=== PATIENT | male | born 1980 | race African-American/Black ===

== ENCOUNTER 2018-11-22 16:33 | Emergency (ER) | payer OTHER ==
[~2018-11-22] VITALS: Ht 185.4 cm; Wt 113.4 kg
--- OUTSIDE RECORDS SUMMARY | ~2018-11-22 | XMS | Encounter Summary ---
Demographics + + + | Address | [address] [place] [address] | | | [place] [address] | + + + | Home Phone | | + + + | Preferred Language | Unknown | + + + | Marital Status | Unknown | + + + | Yazidi Affiliation | Unknown | + + + | Race | Unknown | + + + | Ethnic Group | Unknown | + + + Author + + + | Author | [employer] | + + + | Organization | [facility] | + + + | Address | Unknown | + + + | Phone | Unavailable | + + + Support + + +---------+ + | Name | Relationship | Address | Phone | + + +---------+ + | None,Provided | ECON | Unknown | | + + +---------+ + Care Team Providers + +------+ + | Care Lead Relay Tester Name | Role | Phone | + +------+ + | James Conley MD | PCP | | + +------+ + Encounter Details +--------+ + + + + | Date | Type | Department | Care Team | Description | +--------+ + + + + | 10/21/ | Telephone | Eric | December | | | 2019 | | [facility] | | | | | | [address] | | | | | | [place] | | | | | | [address] | | | | | | [phone] | | | +--------+ + + + + Social History + +-------+ +--------+------+ | Tobacco Use | Types | Packs/Day | Years | Date | | | | | Used | | + +-------+ +--------+------+ | Never Smoker | | | | | + +-------+ +--------+------+ + +---+---+---+ | Smokeless Tobacco: | | | | | Never Used | | | | + +---+---+---+ + + +---------+ + | Alcohol Use | Drinks/We | oz/Week | Comments | | | ek | | | + + +---------+ + | No | | | | + + +---------+ + + + + | Sex Assigned at | Date Recorded | | | | + + + | Not on file | | + + + as of this encounter Plan of Treatment +--------+---------+ + + + | Date | Type | Specialty | Care Team | Description | +--------+---------+ + + + | 11/29/ | Office | Neurosurgery | Tc Ronquillo DO | | | 2019 | Visit | | [address] | | | | | | [place] | | | | | | [address] | | | | | | | | +--------+---------+ + + + as of this encounter Visit Diagnoses Not on filein this encounter"
--- OUTSIDE RECORDS SUMMARY | ~2018-11-22 | XMS | Encounter Summary ---
Demographics + + + | Address | [address] [place] [address] | | | [place] [address] | + + + | Home Phone | | + + + | Preferred Language | Unknown | + + + | Marital Status | Unknown | + + + | Mandaeism Affiliation | Unknown | + + + | Race | Unknown | + + + | Ethnic Group | Unknown | + + + Author + + + | Author | [employer] | + + + | Organization | [facility] | + + + | Address | Unknown | + + + | Phone | Unavailable | + + + Support + + +---------+ + | Name | Relationship | Address | Phone | + + +---------+ + | None,Provided | ECON | Unknown | | + + +---------+ + Care Team Providers + +------+ + | Care Center Consultant Name | Role | Phone | + +------+ + | James Conley MD | PCP | | + +------+ + Reason for Visit Auth/Cert +--------+--------+ + + + + | Status | Reason | Specialty | Diagnoses / | Referred By | Referred To | | | | | Procedures | Contact | Contact | +--------+--------+ + + + + | | | | Diagnoses | | | | | | | see chart | | | | | | | note | | | | | | | Procedures | | | | | | | LUMBAR | | | | | | | LAMINECTOMY- | | | | | | | MINIMALLY | | | | | | | INVASIVE | | | | | | | SURGERY | | | +--------+--------+ + + + + Encounter Details +--------+---------+ + + + | Date | Type | Department | Care Team | Description | +--------+---------+ + + + | 11/14/ | Surgery | [facility] | Tc Ronquillo DO | LUMBAR | | 2019 | | [facility] | [address] | LAMINECTOMY-MINIMALL | | | | Operating Room 888 | [place], [place] | Y INVASIVE SURGERY | | | | [facility] | [id number] | | | | | [place] [address] | | | | | | [phone] | | | +--------+---------+ + + + Social History + +-------+ [...] + + + as of this encounter Last Filed Vital Signs + + + + | Vital Sign | Reading | Time Taken | + + + + | Blood Pressure | 112/62 | 11/14/2018 3:14 PM PDT | + + + + | Pulse | 82 | 11/14/2018 3:14 PM PDT | + + + + | Temperature | 36.8 C (98.3 F) | 11/14/2018 3:14 PM PDT | + + + + | Respiratory Rate | 16 | 11/14/2018 3:14 PM PDT | + + + + | Oxygen Saturation | 97% | 11/14/2018 3:14 PM PDT | + + + + | Inhaled Oxygen | - | - | | Concentration | | | + + + + | Weight | 109.9 kg (242 lb 4.6 | 11/14/2018 6:39 AM PDT | | | oz) | | + + + + | Height | 185.4 cm (6' 1") | 11/14/2018 6:39 AM PDT | + + + + | Body Mass Index | 31.97 | 11/14/2018 6:39 AM PDT | + + + + in this encounter Discharge Instructions Maura Saleh RN - 11/12/2018Formatting of this note may be different from the origi nal. Laminectomy The entire lamina is removed from the affected vertebra. Vertebrae are the bones that make up the spine. Laminectomy is a surgery that removes the p art of the vertebra called the lamina. This takes pressure off nerves in the low back and he lps reduce symptoms. A similar surgery is called a laminotomy. For a laminotomy, only part o f the lamina is removed. A laminectomy is usually done to remove pressure from the spinal cord or the nerve roots. I t can also be done to access a tumor, an infection, an abnormal blood vessel, or a blood marvin t. A laminectomy can be followed by a fusion of the vertebrae. Before your surgery Be sure to follow all of your doctor's instructions on preparing for surgery. Follow any directions you are given for not eating or drinking before surgery. If you take a daily medicine, ask if you should still take it the morning of surgery. If you take any blood-thinning medicines, such as aspirin, discuss them with your doctor at least a week before surgery. At the hospital, your temperature, pulse, breathing, and blood pressure will be checked. An IV (intravenous line) will be started to provide fluids and medicines needed during s urgery. During your surgery Once in the operating room, you will be given anesthesia. After you are asleep, an incision is made near the center of your low back. The incision may be 2 to 6 inches long, depending on how many vertebrae are involved. You may have 1 or 2 drains, which will be removed in the next few days. During a laminectomy, the lamina, or bone that forms the back of the spinal canal, is re moved from the affected vertebra. The opening created may be enough to take pressure off the spinal cord or the nerve roots. If needed, your doctor can also remove any bone spurs or di sk matter pressing on the nerve root. After laminectomy, the opening in the spine is protect ed by the thick back muscles, which are closed over the bony defect. Once the nerve is free of pressure, the incision is closed with stitches or surgical sta ples. After your surgery After surgery, you ll be sent to the PACU or postanesthesia care unit. When you are fully awake and stable, you ll be moved to your room. The nurses will give you medicines to eas e your pain. You may have a small tube called a catheter in your bladder. Soon, healthcare p gio will help you get up and moving. You ll also be shown how to keep your lungs jw r with coughing and deep breathing exercises. When to call your healthcare provider Once at home, call your provider if you have any of the symptoms below: Unusual redness, heat, or drainage at the incision site Increasing pain, numbness, or weakness in your leg Fever over 100.4F (38C), or higher, or as advised Date Last Reviewed: 02/01/201819997567-7[address] [employer] [address] [place] [address]. All righ ts reserved. This information is not intended as a substitute for professional medical care. Always follow your healthcare professional's instructions. Discharge Instructions for Laminectomy A surgeon removed a piece of bone from the back of from your spine called the lamina. This procedure is called laminectomy. Its purpose is to relieve the pressure caused by a bulging disk, ligament, cyst, tumor, or bone that painfully pushes on a nerve. Below are some care t ips you can follow at home to help you feel better. Activity Don't push, pull, bend, or twist forweek(s) after your surgery. Don t sit for more thanminutes at a time. And when you aren t sitting, lie down or walk. Walk as much as you can. You can walk outside or inside. If you use a treadmill, walk at a slow speed, with no incline. Going up and down stairs is also good for you, so do it as much as possible.Don t li ft anything heavier thanuntil your doctor says otherwise. Don t drive forweeks after your surgery. And never drive if you are taking opioid pain medication. Let others drive you instead. And limit car trips tominutes at a time. Have someone remove electrical cords, throw rugs, and anything else in your home that ma y cause you to fall. Arrange your household to keep the items you need handy. Home care Take your medicine exactly as directed by your doctor. Check your incision daily for redness, tenderness, or drainage. Don t soak in a bathtub, hot tub, or pool until your doctor says it s OK. Waitday(s) after your surgery to start showering. Then shower as needed. Carefully w solomon your incision with soap and water. Gently pat the incision dry. Don t rub it, or apply creams or lotions. Follow-up Make a follow-up appointment as directed by your doctor. Make an appointment to have sutures or angelina removed aboutweeks after surgery. Call 911 When to call your healthcare provider Call right away if you have any of the following: Chest pain Shortness of breath A severe headache Trouble controlling your bowels or bladder Calf pain, swelling, or redness Call your healthcare provider right away if you have any of the following: Increased pain, redness, or drainage from the incision Fever of(C) or higher, or as directed by your healthcare provider Shaking chills New pain, weakness, warmth, or numbness in your legs Foot, ankle, or calf swelling that is not relieved by elevating your feet Date Last Reviewed: 6744-9063 [employer] [address] [place] [address], [place] [address]. All righ ts reserved. This information is not intended as a substitute for professional medical care. Always follow your healthcare professional's instructions. in this encounter Medications at Time of Discharge + + +--------+---------+ + + | Medication | Sig. | Disp. | Refills | Start | End Date | | | | | | Date | | + + +--------+---------+ + + | amLODIPine | Take 10 mg by mouth | | | | | | (NORVASC) 10 MG | daily. | | | | | | tablet | | | | | | + + +--------+---------+ + + | atorvastatin | Take 20 mg by mouth | | | | | | (LIPITOR) 20 MG | nightly. | | | | | | tablet | | | | | | + + +--------+---------+ + + | baclofen | Take 10 mg by mouth | | | | | | (LIORESAL) 10 mg | 3 (three) times | | | | | | tablet | daily. | | | | | + + +--------+---------+ + + | | Take 1 tablet by | 60 | 0 | 11/15/19 | | | HYDROcodone-acetamin | mouth every 6 (six) | tablet | | 19 | 9 | | ophen (NORCO) 10-325 | hours as needed for | | | | | | MG per tablet | Pain for up to 30 | | | | | | | days. | | | | | + + +--------+---------+ + + | insulin glargine | Inject 35 Units into | | | | | | (LANTUS) 100 UNIT/ML | the skin nightly. | | | | | | injection | | | | | | + + +--------+---------+ + + | insulin regular | Inject into the | | | | | | (HUMULIN R) 100 | skin 3 (three) times | | | | | | UNIT/ML injection | daily before meals. | | | | | | | Sliding scale BS | | | | | | | 150-250 =5 units BS | | | | | | | 251-350= 7 units BS | | | | | | | 351-450=10 unitsFor | | | | | | | BS greater than 450 | | | | | | | call provider | | | | | + + +--------+---------+ + + | lisinopril | Take 20 mg by mouth | | | | | | (ZESTRIL) 20 MG | daily. | | | | | | tablet | | | | | | + + +--------+---------+ + + | potassium chloride | Take 10 mEq by mouth | | | | | | (K-DUR) 10 MEQ | 2 (two) times daily | | | | | | tablet | with meals. | | | | | + + +--------+---------+ + + | UNABLE TO FIND | Med Name: | | | | | | | chlorthalidone 25 mg | | | | | | | tab | | | | | + + +--------+---------+ + + as of this encounter Plan of Treatment +--------+---------+ + + + | Date | Type | Specialty | Care Team | Description | +--------+---------+ + + + | 11/29/ | Office | Neurosurgery | Tc Ronquillo DO | | | 2019 | Visit | | [address] | | | | | | [place] | | | | | | [address] | | | | | | | | +--------+---------+ + + + as of this encounter Procedures + +--------+ + + + | Procedure Name | Priori | Date/Time | Associated Diagnosis | Comments | | | ty | | | | + +--------+ + + + | POCT GLUCOSE | Routin | 11/14/2018 | | Results for this | | | e | 4:09 PM | | procedure are in the | | | | PDT | | results section. | + +--------+ + + + | POCT GLUCOSE | Routin | 11/14/2018 | | Results for this | | | e | 9:50 AM | | procedure are in the | | | | PDT | | results section. | + +--------+ + + + | XR C-ARM FLUORO UP | Routin | 11/14/2018 | | Results for this | | TO 1 HOUR | e | 9:29 AM | | procedure are in the | | | | PDT | | results section. | + +--------+ + + + | LUMBAR | | 11/14/2018 | DDD (degenerative | | | LAMINECTOMY-MINIMALL | | 6:40 AM | disc disease), | | | Y INVASIVE SURGERY | | PDT | lumbar | | + +--------+ + + + +---+--------+ | | | | | Specia | | | l | | | Needs | | | MIS, | | | 2 hrs | | | per | | | office | | | per | | | Laura | +---+--------+ + +--------+ +---+ + | POCT GLUCOSE | Routin | 11/14/2018 | | Results for this | | | e | 6:37 AM | | procedure are in the | | | | PDT | | results section. | + +--------+ +---+ + in this encounter Results POCT glucose (11/14/2018 4:09 PM) + + + + + | Component | Value | Ref Range | Performed At | + + + + + | GLUCOSE,POC SCREEN | 179 (H)Comment: Testing | 65 - 99 mg/dL | [facility] | | | performed at [facility] [place];[address] | | | | | [address];[place], [place] | | | | | [address] | | | + + + + + + + + + + | Performing | Address | City/State/Zipcode | Phone Number | | Organization | | | | + + + + + | [facility] | [address] | [place] [address] | | + + + + + POCT glucose (11/14/2018 9:50 AM) + + + + + | Component | Value | Ref Range | Performed At | + + + + + | GLUCOSE,POC SCREEN | 154 (H)Comment: Testing | 65 - 99 mg/dL | [facility] | | | performed at [facility] [place];[address] | | | | | [address];[place] | | | | | [address] | | | + + + + + + + + + + | Performing | Address | City/State/Zipcode | Phone Number | | Organization | | | | + + + + + | [facility] | [address] | [place] [address] | | + + + + + X-ray C-arm fluoro up to 1 hour (11/14/2018 9:29 AM) + + + | Impressions | Performed At | + + + | C-arm images during lumbar surgery. This report is for radiation | [facility] | | documentation purposes only. Signed by: Roshan Morris Sign | RADIOLOGY | | Date/Time: 11/15/2018 1:15 PM | | + + + + + + | Narrative | Performed At | + + + | C-ARM <60 W/FLUORO CLINICAL INFORMATION: Lumbar | [facility] | | Laminectomy-Minimally Invasive Surgery FINDINGS: 10.2 seconds of | RADIOLOGY | | fluoroscopy was utilized by Dr. Tc Ronquillo during | | | surgery. 7.43 mGy peak skin dose. There is a cone shaped device | | | posterior to L4-L5 on 1 image, L5-S1 on a 2nd image. Total number of | | | images: 2. | | + + + + + | Procedure Note | + + | Axel Kat Results In - 11/15/2018 1:18 PM PDT C-ARM <60 W/FLUORO | | CLINICAL INFORMATION: | | Lumbar Laminectomy-Minimally Invasive Surgery | | FINDINGS: | | 10.2 seconds of fluoroscopy was utilized by Dr. Tc Ronquillo during | | surgery. 7.43 mGy peak skin dose. | | There is a cone shaped device posterior to L4-L5 on 1 image, L5-S1 on a | | 2nd image. | | Total number of images: 2. | | IMPRESSION: | | C-arm images during lumbar surgery. This report is for radiation | | documentation purposes only. | | Signed by: Roshan Morris | | Sign Date/Time: 11/15/2018 1:15 PM | + + + + + + + | Performing | Address | City/State/Zipcode | Phone Number | | Organization | | | | + + + + + | [facility] | [address] | [place] [address] | | + + + + + POCT glucose (11/14/2018 6:37 AM) + + + + + | Component | Value | Ref Range | Performed At | + + + + + | GLUCOSE,POC SCREEN | 99Comment: Testing | 65 - 99 mg/dL | [facility] | | | performed at [facility] [place];[address] | | | | | [address];[place] | | | | | [address] | | | + + + + + + + + + + | Performing | Address | City/State/Zipcode | Phone Number | | Organization | | | | + + + + + | [facility] | [address] | [place] [address] | | + + + + + in this encounter Visit Diagnoses Not on filein this encounter Admitting Diagnoses + + | Diagnosis | + + | Lumbar radiculopathy | + + | Thoracic or lumbosacral neuritis or radiculitis, unspecified | + + | DDD (degenerative disc disease), lumbar | + + | Degeneration of lumbar or lumbosacral intervertebral disc | + + | Lumbar disc herniation | + + | Displacement of lumbar intervertebral disc without myelopathy | + + | Weakness of right foot | + + Administered Medications + +--------+---------+------+------+------+ | Medication Order | MAR | Action | Dose | Rate | Site | | | Action | Date | | | | + +--------+---------+------+------+------+ + +---+ | acetaminophen (TYLENOL) | | | suppository 650 mg 650 mg, | | | Rectal, Every 6 Hours PRN, Mild | | | Pain (1-3), Fever, Starting Dia | | | 11/14/18 at 1049 | | + +---+ | | | + +---+ | acetaminophen (TYLENOL) tablet | | | 650 mg 650 mg, Oral, Every 6 | | | Hours PRN, Mild Pain (1-3), | | | Fever, Starting Dia 11/14/18 at | | | 1049 | | + +---+ | | | + +---+ + +-------+ +---------+---+---+ | bacitracin injection PRN, | Given | | 50,000 | | | | Starting Dia 11/14/18 at 0730, | | 9 07:30 | Units | | | | Intra-op | | PDT | | | | + +-------+ +---------+---+---+ +---+---+ | | | +---+---+ + +-------+ +--------+---+------+ | bupivacaine-EPINEPHrine (PF) | Given | | 40 mLs | | Back | | 0.5% [id number] 30 mL in lidocaine | | 9 08:05 | | | | | 1 % 20 mL OR medication mixture | | PDT | | | | | PRN, Starting [facility] 11/14/18 at | | | | | | | 0805, Intra-op | | | | | | + +-------+ +--------+---+------+ +---+---+ | | | +---+---+ + +-------+ +--------+---+---+ | diazePAM (VALIUM) tablet 2.5 mg | Given | | 2.5 mg | | | | 2.5 mg (rounded from 2 mg), | | 9 15:19 | | | | | Oral, Once, [facility] 11/14/18 at 1300, | | PDT | | | | | For 1 dose | | | | | | + +-------+ +--------+---+---+ +---+---+ | | | +---+---+ + +-------+ +--------+---+---+ | fentaNYL (SUBLIMAZE) injection | Given | | 50 mcg | | | | 50 mcg 50 mcg, Intravenous, | | 9 10:24 | | | | | Every 5 Min PRN, Pain, Option One | | PDT | | | | | for pain scale 5-10/10. If no | | | | | | | relief, proceed to option 2., | | | | | | | Starting [facility] 11/14/18 at 0918, | | | | | | | PACU | | | | | | + +-------+ +--------+---+---+ +---+---+ | | | +---+---+ + +-------+ + +---+---+ | HYDROcodone-acetaminophen | Given | | 1 tablet | | | | (NORCO) 10-325 MG per tablet 1 | | 9 11:05 | | | | | tablet 1 tablet, Oral, Every 4 | | PDT | | | | | Hours PRN, Severe Pain (7-10), | | | | | | | Starting [facility] 11/14/18 at 1049 | | | | | | + +-------+ + +---+---+ +-------+ + +---+---+ | Given | | 1 tablet | | | | | 9 16:07 | | | | | | PDT | | | | +-------+ + +---+---+ + +---+ | | | + +---+ | HYDROcodone-acetaminophen | | | (NORCO) 5-325 MG per tablet 1 | | | tablet 1 tablet, Oral, Every 4 | | | Hours PRN, Moderate Pain (4-6), | | | Starting [facility] 11/14/18 at 1049 | | + +---+ | | | + +---+ | ondansetron (ZOFRAN) injection | | | 4 mg 4 mg, Intravenous, Every 6 | | | Hours PRN, Nausea, Vomiting, | | | Starting [facility] 11/14/18 at 1049 | | + +---+ | | | + +---+ | ondansetron (ZOFRAN-ODT) | | | disintegrating tablet 4 mg 4 mg, | | | Oral, Every 6 Hours PRN, Nausea, | | | Vomiting, Starting [facility] 11/14/18 | | | at 1049 | | + +---+ | | | + +---+ | sodium chloride (PF) 0.9 % | | | flush 10 mL 10 mL, Intravenous, | | | Every 8 Hours PRN, Line Care, | | | when tolerating oral fluids, | | | Starting [facility] 11/14/18 at 1049 | | + +---+ | | | + +---+ in this encounter
--- OUTSIDE RECORDS SUMMARY | ~2018-11-22 | XMS | Encounter Summary ---
Demographics + + + | Address | [address] [place] [address] | | | [place] [address] | + + + | Home Phone | | + + + | Preferred Language | Unknown | + + + | Marital Status | Unknown | + + + | Hoahaoism Affiliation | Unknown | + + + | Race | Unknown | + + + | Ethnic Group | Unknown | + + + Author + + + | Author | [employer] | + + + | Organization | [facility] | + + + | Address | Unknown | + + + | Phone | Unavailable | + + + Support + + +---------+ + | Name | Relationship | Address | Phone | + + +---------+ + | None,Provided | ECON | Unknown | | + + +---------+ + Care Team Providers + +------+ + | Care Gun Examiner Name | Role | Phone | + +------+ + | James Conley MD | PCP | | + +------+ + Encounter Details +--------+ + + + + | Date | Type | Department | Care Team | Description | +--------+ + + + + | 11/14/ | Procedure | [facility] | | | | 2019 | [facility] | | | | | | Operating Room [address] | | | | | | [address] [facility] | | | | | | [place] [address] | | | | | | [phone] | | | +--------+ + + + [...] [place] | | | | | | [id number] | | | | | | | | +--------+---------+ + + + as of this encounter Visit Diagnoses Not on filein this encounter"
--- OUTSIDE RECORDS SUMMARY | ~2018-11-22 | XMS | Encounter Summary ---
Demographics + + + | Address | [address] [place] [address] | | | [place] [address] | + + + | Home Phone | | + + + | Preferred Language | Unknown | + + + | Marital Status | Unknown | + + + | Restoration Affiliation | Unknown | + + + | Race | Unknown | + + + | Ethnic Group | Unknown | + + + Author + + + | Author | [employer] | + + + | Organization | [facility] [employer] [facility] | + + + | Address | Unknown | + + + | Phone | Unavailable | + + + Support + + +---------+ + | Name | Relationship | Address | Phone | + + +---------+ + | None,Provided | ECON | Unknown | | + + +---------+ + Care Team Providers + +------+ + | Care Ruby Rails Developer Name | Role | Phone | + [...] +--------+--------+ + + + + Encounter Details +--------+ + + + + | Date | Type | Department | Care Team | Description | +--------+ + + + + | 11/14/ | Hospital | [facility] | Tc Ronquillo DO | DDD (degenerative | | 2019 | Encounter | [facility] | [address] | disc disease), | | | | Clinical Decision | [place] [address] [place], [place] | lumbar; Lumbar disc | | | | [address] | [address] | herniation; Lumbar | | | | [place] [address] | | radiculopathy; | | | | [phone] | | Weakness of right | | | | | | foot | +--------+ + + + + Social [...] called a catheter in your bladder. Soon, joanna powers will help you get up and moving. [...] higher, or as advised Date Last Reviewed: 02/01/201819995770-7473 [employer]. [address] [place] [address]. All righ ts reserved. This information is [...] by elevating your feet Date Last Reviewed: 1906-8004 [employer]. [address] [place] [address]. All righ ts reserved. This information is [...] [place] | | | | | | [address] | | | | | | | [...] Testing | 65 - 99 mg/dL | [facility] | | | performed at [facility];[address] | | | | | [address];[place] | | | | | [address] | | | + + + + + + + + + + | Performing | Address | City/State/Zipcode | Phone Number | | Organization | | | | + + + + + | [facility] | [address] [facility] | [place] [address] | | + + + + + POCT glucose (11/14/2018 9:50 AM) + + + + + | Component | Value | Ref Range | Performed At | + + + + + | GLUCOSE,POC SCREEN | 154 (H)Comment: Testing | 65 - 99 mg/dL | [facility] | | | performed at [facility];[address] | | | | | [address];[place] | | | | | [address] | | | + + + + + + + + + + | Performing | Address | City/State/Zipcode | Phone Number | | Organization | | | | + + + + + | [facility] | [address] | [place] [address] | | + + + + + X-ray C-arm fluoro up to 1 hour (11/14/2018 9:29 AM) + + + | Impressions | Performed At | + + + | C-arm images during lumbar surgery. This report is for radiation | [facility] | | documentation purposes only. Signed by: Roshan Morris | RADIOLOGY | | Date/Time: 11/15/2018 1:15 [...] | Procedure Note | + + | North, Rad Results In - 11/15/2018 1:18 PM PDT [...] | + + + + + | [facility] | [address] | [place] [address] | | + + + + + POCT glucose (11/14/2018 6:37 AM) + + + + + | Component | Value | Ref Range | Performed At | + + + + + | GLUCOSE,POC SCREEN | 99Comment: Testing | 65 - 99 mg/dL | [facility] | | | performed at [facility];[address] | | | | | [address];[place] | | | | | [address] | | | + + + + + + + + + + | Performing | Address | City/State/Zipcode | Phone Number | | Organization | | | | + + + + + | [facility] | [address] | [place] [address] | | + + + + + in this encounter Visit Diagnoses + + | Diagnosis | + + | DDD (degenerative disc disease), lumbar | + + | Degeneration of lumbar or lumbosacral intervertebral disc | + + | Lumbar disc herniation | + + | Displacement of lumbar intervertebral disc without myelopathy | + + | Lumbar radiculopathy | + + | Thoracic or lumbosacral neuritis or radiculitis, unspecified | + + | Weakness of right foot | + + Admitting Diagnoses + + | Diagnosis | [...] | | | + +---+ + +-------+ +--------+---+---+ | diazePAM (VALIUM) tablet 2.5 mg | Given | | 2.5 mg | | | | 2.5 mg (rounded from 2 mg), | | 9 15:19 | | | | | Oral, Once, Dia 11/14/18 at 1300, | | PDT | [...] | | | | | | Starting Dia 11/14/18 at 0918, | | | | [...] | | | | | | Starting [facility] 11/14/18 at 1049 | | | | [...] Moderate Pain (4-6), | | | Starting Dia 11/14/18 at 1049 | | + +---+ | | | + +---+ | ondansetron (ZOFRAN) injection | | | 4 mg 4 mg, Intravenous, Every 6 | | | Hours PRN, Nausea, Vomiting, | | | Starting Dia 11/14/18 at 1049 | | + +---+ | | | + +---+ | ondansetron (ZOFRAN-ODT) | | | disintegrating tablet 4 mg 4 mg, | | | Oral, Every 6 Hours PRN, Nausea, | | | Vomiting, Starting Dia 11/14/18 | | | at 1049 | | + +---+ | | | + +---+ | sodium chloride (PF) 0.9 % | | | flush 10 mL 10 mL, Intravenous, | | | Every 8 Hours PRN, Line Care, | | | when tolerating oral fluids, | | | Starting Dia 3/14/19 at 1049 | | + +---+ | | | + +---+ in this encounter
--- OUTSIDE RECORDS SUMMARY | ~2018-11-22 | XMS | Encounter Summary ---
Demographics + + + | Address | [address] [place] [address] | | | [place] [address] | + + + | Home Phone | | + + + | Preferred Language | Unknown | + + + | Marital Status | Unknown | + + + | Episcopal Affiliation | Unknown | + + + | Race | Unknown | + + + | Ethnic Group | Unknown | + + + Author + + + | Author | Cintia [employer] | + + + | Organization | [facility] [facility] | + + + | Address | Unknown | + + + | Phone | Unavailable | + + + Support + + +---------+ + | Name | Relationship | Address | Phone | + + +---------+ + | None,Provided | ECON | Unknown | | + + +---------+ + Care Team Providers + +------+ + | Care Drop Machine Operator Name | Role | Phone | + +------+ + | James Conley MD | PCP | | + +------+ + Reason for Referral Surgical (Routine) +--------+ + + + + + | Status | Reason | Specialty | Diagnoses / | Referred By | Referred To | | | | | Procedures | Contact | Contact | +--------+ + + + + + | Denied | Specialty | Orthopedic | Diagnoses | Althe[place], | Ang, | | | Services | Surgery | Lumbar | Ricardo, DO | EMANUEL Virk | | | Required | | radiculopath | [address] | [address] | | | | | [address] | [address] | [address] | | | | | disc | [place], [place] | [place] | | | | | herniation | [address] | [address] Phone: | | | | | DDD | Phone: | [phone] | | | | | (degenerativ | [phone] | Fax: | | | | | e disc | Fax: | [phone] | | | | | disease), | [phone] | | | | | | lumbar | | | +--------+ + + + + + Reason for Visit + + + | Reason | Comments | + + + | Follow-up | Lumbar spine | + + + Consultation (Routine) + + + + + + + | Status | Reason | Specialty | Diagnoses / | Referred By | Referred To | | | | | Procedures | Contact | Contact | + + + + + + + | Authorized | Specialty | Dolorology | Diagnoses | Shima | Ric Nw Osm | | | Services | | Lumbar | DO Tc | Paulo | | | Required | | radiculopath | [address] | Pain Mgmt | | | | | y Lumbar | [address] | [address] | | | | | disc | [address] | [address] [place], | | | | | herniation | [place], [place] | [place] | | | | | DDD | [address] | [address] | | | | | (degenerativ | Phone: | Phone: | | | | | e disc | [phone] | [phone] | | | | | disease), | Fax: | Fax: | | | | | lumbar | [phone] | [phone] | | | | | Weakness of | | | | | | | right foot | | | + + + + + + + Encounter Details +--------+---------+ + + + | Date | Type | Department | Care Team | Description | +--------+---------+ + + + | 09/06/ | Office | [facility] | Ricardo Oh DO | Lumbar radiculopathy | | 2019 | Visit | [facility] | [address] | (Primary Dx); | | | | MEDICINE PAULO | [place] [address] | Lumbar disc | | | | PAIN [address] | [phone] | herniation; DDD | | | | [place], [place] | | (degenerative disc | | | | [address] | | disease), lumbar | | | | [phone] | | | +--------+---------+ + + + [...] + + + | Blood Pressure | - | - | + + + + | Pulse | 58 | 09/06/2018 8:17 AM PST | + + + + | Temperature | - | - | + + + + | Respiratory Rate | - | - | + + + + | Oxygen Saturation | 98% | 09/06/2018 8:17 AM PST | + + + + | Inhaled Oxygen | - | - | | Concentration | | | + + + + | Weight | - | - | + + + + | Height | 185.4 cm (6' 1") | 09/06/2018 8:17 AM PST | + + + + | Body Mass Index | - | - | + + + + in this encounter Progress Notes AltheaPaoDO miguel a - 09/06/2018 8:25 AM PSTFormatting of this note may be different from courtney maradiaga original. [facility]: Interventional Pain Management 09/06/2018 Andrea Motta 1980 Chief Complaint Patient presents with Follow-up Lumbar spine HISTORY OF PRESENT ILLNESS Back Pain This is a chronic problem. The current episode started more than 1 year ago. The problem oc curs constantly. The problem is unchanged. The pain is present in the lumbar spine. The qual ity of the pain is described as aching, shooting and stabbing. The pain radiates to the left thigh, left knee and left foot. The pain is at a severity of 6/10. The pain is moderate. As sociated symptoms include numbness and tingling. Pertinent negatives include no abdominal pa in, chest pain, fever, headaches or weakness. The treatment provided mild relief. REVIEW OF SYSTEMS Review of Systems Constitutional: Negative for activity change, appetite change, fatigue and fever. HENT: Negative for congestion, trouble swallowing and voice change. Eyes: Negative for photophobia, discharge and visual disturbance. Respiratory: Negative for apnea, cough, shortness of breath and wheezing. Cardiovascular: Negative for chest pain, palpitations and leg swelling. Gastrointestinal: Negative for abdominal pain, diarrhea, nausea and vomiting. Endocrine: Negative for cold intolerance, heat intolerance and polyuria. Musculoskeletal: Positive for back pain. Negative for gait problem, joint swelling, neck pa in and neck stiffness. Skin: Negative for color change and rash. Allergic/Immunologic: Negative for environmental allergies and food allergies. Neurological: Positive for tingling and numbness. Negative for dizziness, seizures, weaknes s, light-headedness and headaches. Psychiatric/Behavioral: Negative for dysphoric mood and suicidal ideas. The patient is not nervous/anxious. All other systems reviewed and are negative. No past medical history on file. Past Surgical History Procedure Laterality Date EPIDURAL STEROID INJECTION Right 07/04/2018 LESI RIGHT L4-L5 EPIDURAL STEROID INJECTION Right 07/18/2018 LESI Right L5-S1 No Known Allergies Prior to Admission medications Medication Sig Start Date End Date Taking? Authorizing Provider baclofen (LIORESAL) 10 mg tablet Take 10 mg by mouth 3 (three) times daily. Yes Historica l Provider traMADol (ULTRAM) 50 MG tablet Take 50 mg by mouth 3 (three) times daily. Yes Historical Provider No family history on file. Social History Social History Marital status: Unknown Spouse name: N/A Number of children: N/A Years of education: N/A Occupational History Not on file. Social History Main Topics Smoking status: Never Smoker Smokeless tobacco: Never Used Alcohol use No Drug use: No Sexual activity: Not on file Other Topics Concern Not on file Social History Narrative No narrative on file PHYSICAL EXAM Vital Signs: Pulse 58 | Ht 1.854 m (6' 1") | SpO2 98% | BMI 32.32 kg/m Physical Exam Constitutional: He is oriented to person, place, and time. He appears well-developed and we ll-nourished. HENT: Head: Normocephalic and atraumatic. Eyes: Conjunctivae are normal. Neck: No tracheal deviation present. Pulmonary/Chest: Effort normal. Neurological: He is alert and oriented to person, place, and time. Skin: Skin is warm and dry. Psychiatric: He has a normal mood and affect. His behavior is normal. Judgment normal. Vitals reviewed. Back Exam Tenderness The patient is experiencing tenderness in the lumbar. Other Gait: antalgic DATA No results found. PROBLEM LIST 1. Lumbar radiculopathy 2. Lumbar disc herniation 3. DDD (degenerative disc disease), lumbar ASSESSMENT & PLAN Mr. Motta is a 37-year-old man here following up after two epidural steroid injections du e to his paracentral disk herniation impinging upon his exiting nerve root targeting his S1. He got good relief for roughly about a week where it was no longer going down his leg and he was able to sleep, but unfortunately it did not last as long as we were hoping for. For this reason, we will refer him to Dr. Casiano to see if he is a surgical candidate or not. He does agree with the plan. Denies any loss of bowel or bladder function. <<0:27>> of his care. Plan, alternatives, risks and potential benefits of the procedure were explained to the pat ient in great detail. The patient understands that there is no guarantee they will get pain relief with this procedure. They also understand that if they do get pain relief that ther e is no way to know how long it will last. They also understand there is a risk to the proc edure itself which includes but are not limited to infection, abscess, hematoma, nerve damag e, paraplegia or quadriplegia, increased pain, spinal headache, stroke, and side effects fro m the medications themselves. The patient wishes to proceed. Patient is currently participating in home exercises. Primary Care Physician: James Conley follow up Ricardo Oh DO 09/06/2018 This document has been prepared with [employer] voice recognition system. The possibility of "s ound alike" mobile service rv technician errors, and additions, or deletions may occur. If there is any que stion with respect to clarity of the message being conveyed, please contact me directly for clarification.in this encounter Plan of Treatment +--------+---------+ + + + | Date | Type | Specialty | Care Team | Description | +--------+---------+ + + + | 11/29/ | Office | Neurosurgery | Tc Ronquillo DO | | | 2019 | Visit | | [address] | | | | | | [place] | | | | | | [address] | | | | | | | | +--------+---------+ + + + + +--------+ + + | Name | Priori | Associated Diagnoses | Order Schedule | | | ty | | | + +--------+ + + | Ambulatory referral to | Routin | Lumbar | Ordered: 09/06/2018 | | [facility] | e | radiculopathy | | | | | Lumbar disc | | | | | herniation DDD | | | | | (degenerative disc | | | | | disease), lumbar | | + +--------+ + + as of this encounter Visit Diagnoses + + | Diagnosis | + + | Lumbar radiculopathy - Primary | + + | Thoracic or lumbosacral neuritis or radiculitis, unspecified | + + | Lumbar disc herniation | + + | Displacement of lumbar intervertebral disc without myelopathy | + + | DDD (degenerative disc disease), lumbar | + + | Degeneration of lumbar or lumbosacral intervertebral disc | + +
--- OUTSIDE RECORDS SUMMARY | ~2018-11-22 | XMS | Encounter Summary ---
Demographics + + + | Address | [address] [place] [address] | | | [place] [address] | + + + | Home Phone | | + + + | Preferred Language | Unknown | + + + | Marital Status | Unknown | + + + | Christian Affiliation | Unknown | + + + | Race | Unknown | + + + | Ethnic Group | Unknown | + + + Author + + + | Author | Cintia [employer] | + + + | Organization | [facility] | + + + | Address | Unknown | + + + | Phone | Unavailable | + + + Support + + +---------+ + | Name | Relationship | Address | Phone | + + +---------+ + | None,Provided | ECON | Unknown | | + + +---------+ + Care Team Providers + +------+ + | Care Gag Writer Name | Role | Phone | + [...] + + | 11/14/ | Hospital | [facility] | Tc Ronquillo DO | DDD (degenerative | | 2019 | Encounter | [facility] | [address] | disc disease), | | | | Clinical Decision | [place] [address] [place], [place] | lumbar; Lumbar disc | | | | [address] | [address] | herniation; Lumbar | | | | [place] [address] | | radiculopathy; | | | | [phone] | | Weakness of right | | [...] higher, or as advised Date Last Reviewed: 02/01/201819990936-7288 The [employer]. [address] [place] [address]. All righ ts reserved. This information is [...] by elevating your feet Date Last Reviewed: 5563-7306 [employer]. [address] [place] [address]. All righ ts reserved. This information is [...] [address] | | | | | | [place] | | | | | | [address] | | | | | | | [...] Testing | 65 - 99 mg/dL | [facility] | | | performed at [facility];[address] | | | | | [address];[place] | | | | | [address] | | | + + + + + + + + + + | Performing | Address | City/State/Zipcode | Phone Number | | Organization | | | | + + + + + | [facility] | [address] | [place] [address] | | + + + + + POCT glucose (11/14/2018 9:50 AM) + + + + + | Component | Value | Ref Range | Performed At | + + + + + | GLUCOSE,POC SCREEN | 154 (H)Comment: Testing | 65 - 99 mg/dL | [facility] | | | performed at [facility];[address] | | | | | [facility];[place] | | | | | [address] | | | + + + + + + + + + + | Performing | Address | City/State/Zipcode | Phone Number | | Organization | | | | + + + + + | [facility] | [address] | [place] [address] | | + + + + + X-ray C-arm fluoro up to 1 hour (11/14/2018 9:29 AM) + + + | Impressions | Performed At | + + + | C-arm images during lumbar surgery. This report is for radiation | [facility] | | documentation purposes only. Signed [...] + + + + + | [facility] | [address] | [place] [address] | | + + + + + POCT glucose (11/14/2018 6:37 AM) + + + + + | Component | Value | Ref Range | Performed At | + + + + + | GLUCOSE,POC SCREEN | 99Comment: Testing | 65 - 99 mg/dL | [facility] | | | performed at [facility];[address] | | | | | [address];[place] | | | | | [address] | | | + + + + + + + + + + | Performing | Address | City/State/Zipcode | Phone Number | | Organization | | | | + + + + + | [facility] | [address] | [place] [address] | | + + + + + [...] | | | | | | Starting [facility] 11/14/18 at 1049 | | | [...]
--- OUTSIDE RECORDS SUMMARY | ~2018-11-22 | XMS | Encounter Summary ---
Demographics + + + | Address | [address] [place] [address] | | | [place] [address] | + + + | Home Phone | | + + + | Preferred Language | Unknown | + + + | Marital Status | Unknown | + + + | Cheondoism Affiliation | Unknown | + + + | Race | Unknown | + + + | Ethnic Group | Unknown | + + + Author + + + | Author | Cintia [employer] | + + + | Organization | [facility] [facility] | + + + | Address | Unknown | + + + | Phone | Unavailable | + + + Support + + +---------+ + | Name | Relationship | Address | Phone | + + +---------+ + | None,Provided | ECON | Unknown | | + + +---------+ + Care Team Providers + +------+ + | Care Pie Maker Machine Name | Role | Phone | + [...] + + | 11/14/ | Surgery | [facility] | Tc Ronquillo DO | LUMBAR | | 2019 | | [facility] | [address] | LAMINECTOMY-MINIMALL | | | | Operating Room [address] | [place] [address] [place], [place] | Y INVASIVE SURGERY | | | | [address] [facility] | [id number] | | | | | [place] [address] | | | | | | [phone] | | | +--------+---------+ + + + [...] higher, or as advised Date Last Reviewed: 02/01/201819997537-8455 The [employer]. [address] [place] [address]. All righ ts reserved. This information is [...] by elevating your feet Date Last Reviewed: 0517-7443 The [employer]. [address] [place] [address], [place] [address]. All righ ts reserved. This information is [...] [place] | | | | | | [address] | | | | | | | [...] Testing | 65 - 99 mg/dL | [facility] | | | performed at [facility];[address] | | | | | [address];[place], [place] | | | | | [address] | | | + + + + + + + + + + | Performing | Address | City/State/Zipcode | Phone Number | | Organization | | | | + + + + + | [facility] | [address] | [place] [address] | | + + + + + POCT glucose (11/14/2018 9:50 AM) + + + + + | Component | Value | Ref Range | Performed At | + + + + + | GLUCOSE,POC SCREEN | 154 (H)Comment: Testing | 65 - 99 mg/dL | [facility] | | | performed at [facility];[address] | | | | | [address];[place] | | | | | [address] | | | + + + + + + + + + + | Performing | Address | City/State/Zipcode | Phone Number | | Organization | | | | + + + + + | [facility] | [address] | [place] [address] | | + + + + + X-ray C-arm fluoro up to 1 hour (11/14/2018 9:29 AM) + + + | Impressions | Performed At | + + + | C-arm images during lumbar surgery. This report is for radiation | [facility] | | documentation purposes only. Signed [...] | + + + + + | [facility] | [address] | [place] [address] | | + + + + + POCT glucose (11/14/2018 6:37 AM) + + + + + | Component | Value | Ref Range | Performed At | + + + + + | GLUCOSE,POC SCREEN | 99Comment: Testing | 65 - 99 mg/dL | [facility] | | | performed at [facility];[address] | | | | | [address];[place] | | | | | [address] | | | + + + + + + + + + + | Performing | Address | City/State/Zipcode | Phone Number | | Organization | | | | + + + + + | [facility] | [address] | [place] [address] | | + + + + + [...] mLs | | Back | | 0.5% -1:[id number] 30 mL in lidocaine | | 9 08:05 | | | | | 1 % 20 mL OR medication mixture | | PDT | | | | | PRN, Starting [facility] 11/14/18 at | | | | | | | 0805, Intra-op | | | | | | + +-------+ +--------+---+------+ +---+---+ | | | +---+---+ + +-------+ +--------+---+---+ | diazePAM (VALIUM) tablet 2.5 mg | Given | | 2.5 mg | | | | 2.5 mg (rounded from 2 mg), | | 9 15:19 | | | | | Oral, Once, [facility] 11/14/18 at 1300, | | PDT | [...] | | | | | | Starting [facility] 11/14/18 at 0918, | | | | [...] | | | | | | Starting [facility] 11/14/18 at 1049 | | | [...] Moderate Pain (4-6), | | | Starting [facility] 11/14/18 at 1049 | | + +---+ | | | + +---+ | ondansetron (ZOFRAN) injection | | | 4 mg 4 mg, Intravenous, Every 6 | | | Hours PRN, Nausea, Vomiting, | | | Starting [facility] 11/14/18 at 1049 | | + +---+ | | | + +---+ | ondansetron (ZOFRAN-ODT) | | | disintegrating tablet 4 mg 4 mg, | | | Oral, Every 6 Hours PRN, Nausea, | | | Vomiting, Starting [facility] 11/14/18 | | | at 1049 | | + +---+ | | | + +---+ | sodium chloride (PF) 0.9 % | | | flush 10 mL 10 mL, Intravenous, | | | Every 8 Hours PRN, Line Care, | | | when tolerating oral fluids, | | | Starting [facility] 11/14/18 at 1049 | | + +---+ | | | + +---+ in this encounter
--- OUTSIDE RECORDS SUMMARY | ~2018-11-22 | XMS | Encounter Summary ---
Demographics + + + | Address | [address] [place] [address] | | | [place] [address] | + + + | Home Phone | | + + + | Preferred Language | Unknown | + + + | Marital Status | Unknown | + + + | Islam Affiliation | Unknown | + + + | Race | Unknown | + + + | Ethnic Group | Unknown | + + + Author + + + | Author | Cintia Aligo | + + + | Organization | [facility] [employer] | + + + | Address | Unknown | + + + | Phone | Unavailable | + + + Support + + +---------+ + | Name | Relationship | Address | Phone | + + +---------+ + | None,Provided | ECON | Unknown | | + + +---------+ + Care Team Providers + +------+ + | Care Screw Down Name | Role | Phone | + +------+ + | James Conley MD | PCP | | + +------+ + Encounter Details +--------+ + + + + | Date | Type | Department | Care Team | Description | +--------+ + + + + | 09/09/ | Telephone | [facility] | Sumi Dhaliwal, ELLY | | | 2018 | | ORTHO SPORTS | | | | | | MEDICINE DYAN | | | | | | PAIN [address] | | | | | | [place] | | | | | | [address] | | | | | | [phone] | | | +--------+ + + + [...] | 11/29/ | Office | Neurosurgery | cT Ronquillo DO | | | 2019 | Visit | | [address] | | | | | | [place] | | | | | | [id number] | | | | | | | | +--------+---------+ + + + as of this encounter Visit Diagnoses Not on filein this encounter"
--- OUTSIDE RECORDS SUMMARY | ~2018-11-22 | XMS | Clinical Summary ---
Demographics + + + | Address | [address] [place] [address] | | | [place] [address] | + + + | Home Phone | | + + + | Preferred Language | Unknown | + + + | Marital Status | Unknown | + + + | Mu-Ism Affiliation | Unknown | + + + | Race | Unknown | + + + | Ethnic Group | Unknown | + + + Author + + + | Author | [employer] | + + + | Organization | [facility] [employer] [facility] | + + + | Address | Unknown | + + + | Phone | Unavailable | + + + Support + + +---------+ + | Name | Relationship | Address | Phone | + + +---------+ + | None,Provided | ECON | Unknown | | + + +---------+ + Care Team Providers + +------+ + | Care [employer] [facility] [employer] Name | Role | Phone | + +------+ + | James Conley MD | PP | | + +------+ + Allergies + + + + + + | Active Allergy | Reactions | Severity | Noted | Comments | | | | | Date | | + + + + + + | Fish-Derived | Angioedema | High | 11/15/19 | | | Products | | | 19 | | + + + + + + Current Medications + + +--------+---------+------+------+-------+ | Prescription | Sig. | Disp. | Refills | Star | End | Statu | | | | | | t | Date | s | | | | | | Date | | | + + +--------+---------+------+------+-------+ | baclofen | Take 10 mg by mouth | | | | | Activ | | (LIORESAL) 10 mg | 3 (three) times | | | | | e | | tablet | daily. | | | | | | + + +--------+---------+------+------+-------+ | potassium chloride | Take 10 mEq by mouth | | | | | Activ | | (K-DUR) 10 MEQ | 2 (two) times daily | | | | | e | | tablet | with meals. | | | | | | + + +--------+---------+------+------+-------+ | insulin glargine | Inject 35 Units into | | | | | Activ | | (LANTUS) 100 UNIT/ML | the skin nightly. | | | | | e | | injection | | | | | | | + + +--------+---------+------+------+-------+ | lisinopril | Take 20 mg by mouth | | | | | Activ | | (ZESTRIL) 20 MG | daily. | | | | | e | | tablet | | | | | | | + + +--------+---------+------+------+-------+ | atorvastatin | Take 20 mg by mouth | | | | | Activ | | (LIPITOR) 20 MG | nightly. | | | | | e | | tablet | | | | | | | + + +--------+---------+------+------+-------+ | insulin regular | Inject into the | | | | | Activ | | (HUMULIN R) 100 | skin 3 (three) times | | | | | e | | UNIT/ML injection | daily before [...] call provider | | | | | | + + +--------+---------+------+------+-------+ | UNABLE TO FIND | Med Name: | | | | | Activ | | | chlorthalidone 25 mg | | | | | e | | | tab | | | | | | + + +--------+---------+------+------+-------+ | amLODIPine | Take 10 mg by mouth | | | | | Activ | | (NORVASC) 10 MG | daily. | | | | | e | | tablet | | | | | | | + + +--------+---------+------+------+-------+ | | Take 1 tablet by | 60 | 0 | 03/1 | 04/1 | Activ | | HYDROcodone-acetamin | mouth every 6 (six) | tablet | | /20 | 20 | e | | ophen (NORCO) 10-325 | hours as needed for | | | 19 | 19 | | | MG per tablet | Pain for up to 30 | | | | | | | | days. | | | | | | + + +--------+---------+------+------+-------+ | traMADol (ULTRAM) | Take 50 mg by mouth | | | | 03/1 | Disco | | 50 MG tablet | 3 (three) times | | | | 4/20 | ntinu | | | daily. | | | | 19 | ed | + + +--------+---------+------+------+-------+ Active Problems + + + | Problem | Noted Date | + + + | Lumbar radiculopathy | 06/07/2018 | + + + | Lumbar disc herniation | 06/07/2018 | + + + | DDD (degenerative disc disease), lumbar | 06/07/2018 | + + + | Weakness of right foot | 06/07/2018 | + + + Encounters +--------+ + + + + | Date | Type | Specialty | Care Team | Description | +--------+ + + + + | 11/14/ | Hospital | | Tc Ronquillo DO | DDD (degenerative | | 2019 | Encounter | | | disc disease), | | | | | | lumbar; Lumbar disc | | | | | | herniation; Lumbar | | | | | | radiculopathy; | | | | | | Weakness of right | | | | | | foot | +--------+ + + + + | 11/14/ | Anesthesia | | Marzena Lynn, | | | 2018 | Event | | MANAGER MAIL | | +--------+ + + + + | 11/14/ | Procedure | | | | | 2019 | Pass | | | | +--------+ + + + + | 11/14/ | Surgery | | Tc Ronquillo DO | LUMBAR | | 2018 | | | | LAMINECTOMY-MINIMALL | | | | | | Y INVASIVE SURGERY | +--------+ + + + + | 11/04/ | Telephone | | Tc Ronquillo DO | Schedule Surgery | | 2018 | | | | (Schedule surgery) | +--------+ + + + + | 10/24/ | Documentati | | Roseanne Del Toro, | Care Coordination | | 2018 | on Only | | PAINT FORMULATOR | ([place] [facility] | | | | | | CORRECTIONS | | | | | | 10/11/18) | +--------+ + + + + | 10/22/ | Documentati | | Roseanne Del Toro, | Other ([place] | | 2018 | on Only | | PAINT FORMULATOR | DEPARMENT OF | | | | | | CORRECTIONS [facility] | | | | | | REFERRAL 09/18/2018) | +--------+ + + + + | 10/21/ | Telephone | | Laura Wilson | | | 2018 | | | | | +--------+ + + + + | 10/11/ | Office | | Tc Ronquillo DO | DDD (degenerative | | 2018 | Visit | | | disc disease), | | | | | | lumbar (Primary Dx); | | | | | | Lumbar disc | | | | | | herniation; Lumbar | | | | | | radiculopathy; | | | | | | Weakness of right | | | | | | foot | +--------+ + + + + | 09/09/ | Telephone | | Sumi Dhaliwal CMA | | | 2018 | | | | | +--------+ + + + + | 09/06/ | Office | | Ricardo Oh DO | Lumbar radiculopathy | | 2018 | Visit | | | (Primary Dx); | | | | | | Lumbar disc | | | | | | herniation; DDD | | | | | | (degenerative disc | | | | | | disease), lumbar | +--------+ + + + + from Last 3 Months Social History + +-------+ +--------+------+ | Tobacco [...] on file | | + + + Last Filed Vital Signs + + + [...] AM PDT | + + + + Plan of Treatment +--------+---------+ + + + | Date | Type | Specialty | Care Team | Description | +--------+---------+ + + + | 11/29/ | Office | | Tc Ronquillo DO | | | 2019 | Visit | | [address] | | | | | | [place] | | | | | | [address] | | | | | | | | +--------+---------+ + + + + + + + + | Health Maintenance | Due Date | Last Done | Comments | + + + + + | Vaccine: | | | | | Dtap/Tdap/Td (1 - | 9 | | | | Tdap) | | | | + + + + + | Vaccine: Influenza | | | | | (#1) | 8 | | | + + + + + Procedures + +--------+ + + + | [...] | | Laura | +---+--------+ + +--------+ + + + | POCT GLUCOSE | Routin | 11/14/2018 | | Results for this | | | e | 6:37 AM | | procedure are in the | | | | PDT | | results section. | + +--------+ + + + | CASE REQUEST | Routin | 10/11/2018 | DDD (degenerative | | | OPERATING ROOM | e | 11:25 AM | disc disease), | | | | | PST | lumbar Lumbar disc | | | | | | herniation Lumbar | | | | | | radiculopathy | | | | | | Weakness of right | | | | | | foot | | + +--------+ + + + from Last 3 Months Results POCT glucose (11/14/2018 4:09 PM)Only the most recent of 3 results within the time period is included. + + + + + | Component | Value | Ref Range | Performed At | + + + + + | GLUCOSE,POC SCREEN | 179 (H)Comment: Testing | 65 - 99 mg/dL | [facility] | | | performed at [facility];[address] | | | | | [address];[place] | | | | | [address] | | | + + + + + + + + + + | Performing | Address | City/State/Zipcode | Phone Number | | Organization | | | | + + + + + | [facility] | [address] | [place] [address] | | + + + + + X-ray C-arm fluoro up to 1 hour (11/14/2018 9:29 AM) + + + | Impressions | Performed At | + + + | C-arm images during lumbar surgery. This report is for radiation | [facility] | | documentation purposes only. Signed by: [...] of fluoroscopy was utilized by Dr. Tc J Allamuchy during | | surgery. 7.43 mGy peak [...] | + + + + + | [facility] | [address] | [place] [address] | | + + + + + from Last 3 Months Insurance + +--------+ +------+-------+---------+ | Payer | Benefi | Subscriber | Type | Phone | Address | | | t Plan | ID | | | | | | / | | | | | | | Group | | | | | + +--------+ +------+-------+---------+ | [employer] | [employer] | [id number] | | | | | | RECTIO | | | | | | | NAL | | | | | | | HEALTH | | | | | | | | | | | | | | PARTNE | | | | | | | RS | | | | | + +--------+ +------+-------+---------+ + +--------+ +--------+ + + | Guarantor Name | Accoun | Relation to | Date | Phone | Billing Address | | | t Type | Patient | of | | | | | | | | | | + +--------+ +--------+ + + | ANDREA MOTTA | Tre | Other | [birth year] | Home: | [address] | | | tional | | 1980 | [phone] [place], [place] | | | | | | [phone] | [address] | | | Facili | | | | | | | ty | | | | | + +--------+ +--------+ + +
--- OUTSIDE RECORDS SUMMARY | ~2018-11-22 | XMS | Encounter Summary ---
Demographics + + + | Address | [address] [place] [address] | | | [place] [address] | + + + | Home Phone | | + + + | Preferred Language | Unknown | + + + | Marital Status | Unknown | + + + | Congregation Affiliation | Unknown | + + + | Race | Unknown | + + + | Ethnic Group | Unknown | + + + Author + + + | Author | [employer] | + + + | Organization | [facility] [employer] [facility] | + + + | Address | Unknown | + + + | Phone | Unavailable | + + + Support + + +---------+ + | Name | Relationship | Address | Phone | + + +---------+ + | None,Provided | ECON | Unknown | | + + +---------+ + Care Team Providers + +------+ + | Care Improvement Lead Name | Role | Phone | + [...] + + | 11/14/ | Anesthesia | [facility] | Marzena Lynn, | | | 2019 | Event | [facility] | [facility] [address] | | | | | Operating Room [address] | [place] [address] | | | | | [facility] | [phone] | | | | | [place] [address] | | | | | | [phone] | | | +--------+ + + + + Anesthesia Record + + + + + | Procedure Name | Responsible | Anesthesia Start | Anesthesia Stop Time | | | Anesthesiologist | Time | | + + + + + | LUMBAR | Marzena Lynn ESTEBAN | 11/14/18 0700 | 11/14/18 0935 | | LAMINECTOMY-MINIMALL | | | | | Y INVASIVE SURGERY | | | | | (Bilateral Spine | | | | | Lumbar) | | | | + + + + + +----+---+ + + | Da | T | Event | Comment | | te | i | | | | | m | | | | | e | | | +----+---+ + + | 03 | 0 | An Start | Pre-anesthetic vital signs reassessed. | | /1 | 7 | | | | 4/ | 0 | | | | 20 | 0 | | | | 19 | | | | +----+---+ + + | | 0 | An | | | | 7 | Induction | | | | 0 | | | | | 3 | | | +----+---+ + + | | 0 | An | | | | 7 | Intubation | | | | 0 | | | | | 5 | | | +----+---+ + + | | 0 | An | | | | 9 | Emergence | | | | 2 | | | | | 9 | | | +----+---+ + + | | 0 | Extubation | | | | 9 | | | | | 2 | | | | | 9 | | | +----+---+ + + | | 0 | An Stop | | | | 9 | | | | | 3 | | | | | 5 | | | +----+---+ + + | | 0 | an stop | | | | 9 | data | | | | 3 | | | | | 7 | | | +----+---+ + + +------+ | Meds | +------+ + +---------+ | Name | Total | + +---------+ | ceFAZolin (ANCEF) 1 g | 2 g | + +---------+ | midazolam 1 mg/mL | 2 mg | + +---------+ | fentanyl 50 mcg/mL | 100 mcg | + +---------+ | lidocaine 2% | 40 mg | + +---------+ | propofol bolus | 200 mg | + +---------+ | ROCuronium 10 mg/mL | 60 mg | + +---------+ | dexamethasone 4 mg/mL | 4 mg | + +---------+ | ondansetron 2 mg/mL | 4 mg | + +---------+ | ketorolac 30 mg/mL | 30 mg | + +---------+ | HYDROmorphone 2 mg/mL | 4 mg | + +---------+ | glycopyrrolate 0.2 mg/mL | 0.3 mg | + +---------+ | neostigmine | 3 mg | + +---------+ | plasmalyte-A | 800 mL | + +---------+ + + | Name | + + | N2O | + + | O2 | + + | Air | + + | Sevoflurane-EX | + + | N2O | + + + + | No blood administrations on file. | + + +--------+ + + + | Type | Details | Placement | Removal | +--------+ + + + | Wound | 11/14/18; 919; Incision; Back; | 11/14/18919 by | | | | Bilateral; 2 incision sites | Hermelindo Ram RN | | | | closed with suture | | | +--------+ + + + | Periph | Placement Date: 11/14/18; | 11/14/18650 by | 11/14/181611 by | | rg | Placement Time: 650; Removal | Lisa Grande RN | Maura Saleh | | IV | Date: 11/14/18; Removal Time: | | RN | | | 1612; Size (Gauge): 18 G; | | | | | Orientation: Left; Location: | | | | | Antecubital; Site Prep: | | | | | Chlorhexidine-Isopropyl Alcohol; | | | | | Insertion Attempts: 2 | | | +--------+ + + + | ETT | Placement Date: 11/14/18; | 11/14/18704 by | 11/14/18928 by | | | Placement Time: 704; Removal | Marzena Lynn CRNA | Marzena Lynn CRNA | | | Date: 11/14/18; Removal Time: | | | | | 928; Mask Airway: Easy; Blade | | | | | Type: Dean; Blade Size: 2; ETT | | | | | Type: Standard ETT; ETT Size | | | | | (Fr): 8.0; Technique: Direct | | | | | Laryngoscope; Grade: I; Insertion | | | | | attempts: 1; Confirmation: | | | | | EtCO2, BBS, Direct visualization; | | | | | Intubation Details: Easy, | | | | | Atraumatic; Taped at (cm): 23; | | | | | Secured at: Teeth | | | +--------+ + + + | Periph | Placement Date: 11/14/18; | 11/14/18714 by | 11/14/18 161 by | | eral | Placement Time: 714; Removal | Marzena Lynn CRNA | Maura Saleh | | IV | Date: 11/14/18; Removal Time: | | RN | | | 161; Size (Gauge): 18 G; | | | | | Orientation: Left; Location: | | | | | Hand; Site Prep: Alcohol; | | | | | Insertion Attempts: 1 | | | +--------+ + + + in this encounter Social History + +-------+ +--------+------+ | Tobacco [...] 11/29/ | Office | Neurosurgery | Tc oRnquillo DO | | | 2019 | Visit | | [address] | | | | | | [place] | | | | | | [address] | | | | | | | | +--------+---------+ + + + as of this encounter Visit Diagnoses Not on filein this encounter Administered Medications + +--------+ +------+------+------+ | Medication Order | MAR | Action | Dose | Rate | Site | | | Action | Date | | | | + +--------+ +------+------+------+ | ceFAZolin (ANCEF) injection | Given | | 2 g | | | | Intravenous, PRN, Starting Dia | | 9 07:06 | | | | | 11/14/18 at 0706, Anesthesia | | PDT | | | | | Intra-op | | | | | | + +--------+ +------+------+------+ +---+---+ | | | +---+---+ + +-------+ +------+---+---+ | dexamethasone (DECADRON) 4 | Given | | 4 mg | | | | MG/ML injection PRN, Starting | | 9 07:27 | | | | | Dia 11/14/18 at 0727, Anesthesia | | PDT | | | | | Intra-op | | | | | | + +-------+ +------+---+---+ +---+---+ | | | +---+---+ + +---------+ +---+---+---+ | electrolyte-A (PLASMALYTE-A) | New Bag | | | | | | solution Intravenous, Continuous | | 9 07:00 | | | | | PRN, Starting Dia 11/14/18 at | | PDT | | | | | 0700, Anesthesia Intra-op | | | | | | + +---------+ +---+---+---+ +---+---+ | | | +---+---+ + +-------+ +---------+---+---+ | fentaNYL (SUBLIMAZE) injection | Given | | 100 mcg | | | | Intravenous, PRN, Starting Dia | | 9 07:00 | | | | | 11/14/18 at 0700, Anesthesia | | PDT | | | | | Intra-op | | | | | | + +-------+ +---------+---+---+ +---+---+ | | | +---+---+ + +-------+ +--------+---+---+ | glycopyrrolate (ROBINUL) | Given | | 0.3 mg | | | | injection PRN, Starting Dia | | 9 09:14 | | | | | 11/14/18 at 14, Anesthesia | | PDT | | | | | Intra-op | | | | | | + +-------+ +--------+---+---+ +---+---+ | | | +---+---+ + +-------+ +------+---+---+ | HYDROmorphone (DILAUDID) | Given | | 2 mg | | | | injection Intravenous, PRN, | | 9 07:27 | | | | | Starting Ida 11/14/18 at 0727, | | PDT | | | | | Anesthesia Intra-op | | | | | | + +-------+ +------+---+---+ +-------+ +------+---+---+ | Given | | 2 mg | | | | | 9 08:53 | | | | | | PDT | | | | +-------+ +------+---+---+ +---+---+ | | | +---+---+ + +-------+ +-------+---+---+ | ketorolac (TORADOL) injection | Given | | 30 mg | | | | PRN, Starting [facility] 11/14/18 at | | 9 09:09 | | | | | 0909, Anesthesia Intra-op | | PDT | | | | + +-------+ +-------+---+---+ +---+---+ | | | +---+---+ + +-------+ +-------+---+---+ | lidocaine 2 % (MDV) 2 % | Given | | 40 mg | | | | injection Intravenous, PRN, | | 9 07:03 | | | | | Starting [facility] 11/14/18 at 0703, | | PDT | | | | | Anesthesia Intra-op | | | | | | + +-------+ +-------+---+---+ +---+---+ | | | +---+---+ + +-------+ +------+---+---+ | midazolam (VERSED) injection | Given | | 2 mg | | | | PRN, Starting Dia 11/14/18 at | | 9 07:00 | | | | | 0700, Anesthesia Intra-op | | PDT | | | | + +-------+ +------+---+---+ +---+---+ | | | +---+---+ + +-------+ +------+---+---+ | neostigmine (PROSTIGMINE) | Given | | 3 mg | | | | injection PRN, Starting Dia | | 9 09:14 | | | | | 11/14/18 at 0914, Anesthesia | | PDT | | | | | Intra-op | | | | | | + +-------+ +------+---+---+ +---+---+ | | | +---+---+ + +-------+ +------+---+---+ | ondansetron (ZOFRAN) injection | Given | | 4 mg | | | | PRN, Nausea, Vomiting, Starting | | 9 09:13 | | | | | Dia 11/14/18 at 0913, Anesthesia | | PDT | | | | | Intra-op | | | | | | + +-------+ +------+---+---+ +---+---+ | | | +---+---+ + +-------+ +--------+---+---+ | propofol (DIPRIVAN) injection | Given | | 200 mg | | | | Intravenous, PRN, Starting Dia | | 9 07:03 | | | | | 11/14/18 at 0703, Anesthesia | | PDT | | | | | Intra-op | | | | | | + +-------+ +--------+---+---+ +---+---+ | | | +---+---+ + +-------+ +-------+---+---+ | rocuronium (ZEMURON) injection | Given | | 50 mg | | | | PRN, Starting Dia 11/14/18 at | | 9 07:03 | | | | | 0722, Anesthesia Intra-op | | PDT | | | | + +-------+ +-------+---+---+ +-------+ +-------+---+---+ | Given | | 10 mg | | | | | 9 07:22 | | | | | | PDT | | | | +-------+ +-------+---+---+ +---+---+ | | | +---+---+ in this encounter"
--- OUTSIDE RECORDS SUMMARY | ~2018-11-22 | XMS | Encounter Summary ---
Demographics + + + | Address | [address] [place] [address] | | | [place] [address] | + + + | Home Phone | | + + + | Preferred Language | Unknown | + + + | Marital Status | Unknown | + + + | Jain Affiliation | Unknown | + + + | Race | Unknown | + + + | Ethnic Group | Unknown | + + + Author + + + | Author | [employer] [employer] | + + + | Organization | [facility] [employer] [facility] | + + + | Address | Unknown | + + + | Phone | Unavailable | + + + Support + + +---------+ + | Name | Relationship | Address | Phone | + + +---------+ + | None,Provided | ECON | Unknown | | + + +---------+ + Care Team Providers + +------+ + | Care Screwmaker Automatic Name | Role | Phone | + +------+ + | James Conley MD | PCP | | + +------+ + Reason for Visit + + + | Reason | Comments | + + + | Care Coordination | [place] [facility] 10/11/18 | + + + Encounter Details +--------+ + + + + | Date | Type | Department | Care Team | Description | +--------+ + + + + | 10/24/ | Documentati | [facility] | Roseanne Del Toro, | Care Coordination | | 2019 | on Only | Neuroscience Center | FLOOR GRINDER | ([facility] | | | | [address] | | CORRECTIONS | | | | [place] | | 10/11/18) | | | | [address] | | | | | | [phone] | | | +--------+ + + + [...] + + + as of this encounter Progress Notes Roseanne Del Toro CMA - 10/24/2018 9:09 AM PSTORDERS FROM [facility] VISIT SIGNED BY DR BASSAM MULLER WITH [facility] CHART NOTES FROM [place] [facility] MEDICATION LIST in this encounter Plan of Treatment +--------+---------+ + + + | Date | Type | Specialty | Care Team | Description | +--------+---------+ + + + | 11/29/ | Office | Neurosurgery | Tc Ronquillo DO | | | 2019 | Visit | | [address] | | | | | | [place] | | | | | | [address] | | | | | | | | +--------+---------+ + + + as of this encounter Visit Diagnoses Not on filein this encounter"
--- OUTSIDE RECORDS SUMMARY | ~2018-11-22 | XMS | Encounter Summary ---
Demographics + + + | Address | [address] [place] [address] | | | [place] [address] | + + + | Home Phone | | + + + | Preferred Language | Unknown | + + + | Marital Status | Unknown | + + + | Holiness Affiliation | Unknown | + + + | Race | Unknown | + + + | Ethnic Group | Unknown | + + + Author + + + | Author | [employer] | + + + | Organization | [facility] [employer] [facility] | + + + | Address | Unknown | + + + | Phone | Unavailable | + + + Support + + +---------+ + | Name | Relationship | Address | Phone | + + +---------+ + | None,Provided | ECON | Unknown | | + + +---------+ + Care Team Providers + +------+ + | Care Station Manager Name | Role | Phone | + +------+ + | James Conley MD | PCP | | + +------+ + Reason for Visit +--------+ + | Reason | Comments | +--------+ + | Other | [facility] 09/18/2018 | +--------+ + Encounter Details +--------+ + + + + | Date | Type | Department | Care Team | Description | +--------+ + + + + | 10/22/ | Documentati | [facility] | Roseanne Del Toro, | Other ([facility] | | 2019 | on Only | [facility] | JUNIOR GRAPHIC DESIGNER | DEPARMENT OF | | | | [address] | | [facility] | | | | [place] | | REFERRAL 09/18/2018) | | | | [address] | | | | | | [phone] | | | +--------+ + + + [...] this encounter Progress Notes Roseanne Del Toro JUNIOR GRAPHIC DESIGNER - 10/22/2018 12:56 PM SRINIVASA Garcia this encounter Plan of Treatment +--------+---------+ + + + | Date | Type | Specialty | Care Team | Description | +--------+---------+ + + + | 11/29/ | Office | Neurosurgery | Tc Ronquillo DO | | | 2019 | Visit | | [address] | | | | | | [place] | | | | | | [address] | | | | | | | | +--------+---------+ + + + as of this encounter Visit Diagnoses Not on filein this encounter"
--- OUTSIDE RECORDS SUMMARY | ~2018-11-22 | XMS | Encounter Summary ---
Demographics + + + | Address | [address] [place] [address] | | | [place] [address] | + + + | Home Phone | | + + + | Preferred Language | Unknown | + + + | Marital Status | Unknown | + + + | Evangelical Affiliation | Unknown | + + + | Race | Unknown | + + + | Ethnic Group | Unknown | + + + Author + + + | Author | [employer] [employer] | + + + | Organization | [facility] | + + + | Address | Unknown | + + + | Phone | Unavailable | + + + Support + + +---------+ + | Name | Relationship | Address | Phone | + + +---------+ + | None,Provided | ECON | Unknown | | + + +---------+ + Care Team Providers + +------+ + | Care Physical Therapist Technician Name | Role | Phone | + +------+ + | James Conley MD | PCP | | + +------+ + Encounter Details +--------+ + + + + | Date | Type | Department | Care Team | Description | +--------+ + + + + | 11/14/ | Procedure | [facility] | | | | 2019 | [facility] | | | | | | Operating Room [address] | | | | | | [facility] | | | | | | [place] [address] | | | | | | [phone] | | | +--------+ + + + [...] VALDEZ | | | | | | [id number] | | | | | | | | +--------+---------+ + + + as of this encounter Visit Diagnoses Not on filein this encounter"
--- OUTSIDE RECORDS SUMMARY | ~2018-11-22 | XMS | Encounter Summary ---
Demographics + + + | Address | [address] [place] [address] | | | [place] [address] | + + + | Home Phone | | + + + | Preferred Language | Unknown | + + + | Marital Status | Unknown | + + + | Adventist Affiliation | Unknown | + + + | Race | Unknown | + + + | Ethnic Group | Unknown | + + + Author + + + | Author | C[employer]ia [employer] | + + + | Organization | [facility] | + + + | Address | Unknown | + + + | Phone | Unavailable | + + + Support + + +---------+ + | Name | Relationship | Address | Phone | + + +---------+ + | None,Provided | ECON | Unknown | | + + +---------+ + Care Team Providers + +------+ + | Care Document Scanner Name | Role | Phone | + +------+ + | James Conley MD | PCP | | + +------+ + Encounter Details +--------+ + + + + | Date | Type | Department | Care Team | Description | +--------+ + + + + | 09/09/ | Telephone | [facility] | Sumi Dhaliwal, ELLY | | | 2018 | | [facility] | | | | | | MEDICINE [place]AN | | | | | | PAIN [address] | | | | | | [place] | | | | | | [address] | | | | | | [phone] | | | +--------+ + + + [...] [place] | | | | | | [id number] | | | | | | | | +--------+---------+ + + + as of this encounter Visit Diagnoses Not on filein this encounter"
--- OUTSIDE RECORDS SUMMARY | ~2018-11-22 | XMS | Clinical Summary ---
Demographics + + + | Address | [address] [place] [address] | | | [place] [address] | + + + | Home Phone | | + + + | Preferred Language | Unknown | + + + | Marital Status | Unknown | + + + | Caodaism Affiliation | Unknown | + + + | Race | Unknown | + + + | Ethnic Group | Unknown | + + + Author + + + | Author | [employer]ia [employer] | + + + | Organization | [facility] | + + + | Address | Unknown | + + + | Phone | Unavailable | + + + Support + + +---------+ + | Name | Relationship | Address | Phone | + + +---------+ + | None,Provided | ECON | Unknown | | + + +---------+ + Care Team Providers + +------+ + | Care Utilization Supervisor Name | Role | Phone | + [...] | | 2018 | Event | | WARP TENSION TESTER | | +--------+ + + + + [...] | 2018 | on Only | | WASH TEST CHECKER | ([place] DEPARMENT OF | | | | | | CORRECTIONS | | | | | | 10/11/18) | +--------+ + + + + | 10/22/ | Documentati | | Roseanne Del Toro, | Other ([place] | | 2018 | on Only | | WASH TEST CHECKER | DEPARMENT OF | | | | [...] | | | | | [place] | | | | | | [id number] | | | | | | | [...] Testing | 65 - 99 mg/dL | [facility] | | | performed at [facility];[address] | | | | | [address];[place] | | | | | [address] | | | + + + + + + + + + + | Performing | Address | City/State/Zipcode | Phone Number | | Organization | | | | + + + + + | [facility] | [address] | [place] [address] | | + + + + + [...] fluoroscopy was utilized by Dr. Tc J [place] during | | surgery. 7.43 mGy peak [...] | + + + + + | [facility] | [address] | [place] [address] | | + + + + + from Last 3 Months Insurance + +--------+ +------+-------+---------+ | Payer | Benefi | Subscriber | Type | Phone | Address | | | t Plan | ID | | | | | | / | | | | | | | Group | | | | | + +--------+ +------+-------+---------+ | [employer] CHO[employer] | [employer] | [id number] | | | | | | RECTIO [...] Other | [birth year]/06/ | Home: | [address] | | | tional | | [phone] | [phone] | [place], [place] | | | | | | [phone] | [phone] | | | Facili | | | | | | | ty | | | | | + +--------+ +--------+ + +
--- OUTSIDE RECORDS SUMMARY | ~2018-11-22 | XMS | Encounter Summary ---
Demographics + + + | Address | [address] [place] [address] | | | [place] [address] | + + + | Home Phone | | + + + | Preferred Language | Unknown | + + + | Marital Status | Unknown | + + + | Episcopalian Affiliation | Unknown | + + + | Race | Unknown | + + + | Ethnic Group | Unknown | + + + Author + + + | Author | Cintia [employer] | + + + | Organization | [facility] | + + + | Address | Unknown | + + + | Phone | Unavailable | + + + Support + + +---------+ + | Name | Relationship | Address | Phone | + + +---------+ + | None,Provided | ECON | Unknown | | + + +---------+ + Care Team Providers + +------+ + | Care Cloth Shrinking Machine Operator Name | Role | Phone | + +------+ + | James Conley MD | PCP | | + +------+ + Reason for Visit + + + | Reason | Comments | + + + | Schedule Surgery | Schedule surgery | + + + Encounter Details +--------+ + + + + | Date | Type | Department | Care Team | Description | +--------+ + + + + | 11/04/ | Telephone | Eric | Tc Ronquillo DO | Schedule Surgery | | 2019 | | [facility] | [address] | (Schedule surgery) | | | | [address] | [place], [place] | | | | | [place], [place] | [address] | | | | | [address] | | | | | | [phone] | | | +--------+ + + + [...] [place] | | | | | | [address] | | | | | | | | +--------+---------+ + + + as of this encounter Visit Diagnoses Not on filein this encounter"
--- OUTSIDE RECORDS SUMMARY | ~2018-11-22 | XMS | Encounter Summary ---
Demographics + + + | Address | [address] [place] [address] | | | [place] [address] | + + + | Home Phone | | + + + | Preferred Language | Unknown | + + + | Marital Status | Unknown | + + + | Nondenominational Affiliation | Unknown | + + + | Race | Unknown | + + + | Ethnic Group | Unknown | + + + Author + + + | Author | [employer]ia [employer] | + + + | Organization | [facility] | + + + | Address | Unknown | + + + | Phone | Unavailable | + + + Support + + +---------+ + | Name | Relationship | Address | Phone | + + +---------+ + | None,Provided | ECON | Unknown | | + + +---------+ + Care Team Providers + +------+ + | Care Shuttle Threader Name | Role | Phone | + [...] | | | | | disc | [place], [place] | [place], [place] | | | | | herniation | [address] | [address] Phone: | | | | | DDD | Phone: | [phone] | | | | | (degenerativ | [phone] | Fax: | | | | | e disc | Fax: | [phone] | | | | | disease), | [phone] | | | | | | lumbar [...] | disc | [place] [address] | [address], | | | | | herniation | [place], [place] | [place] | | | | | DDD | [address] | [address] | | | | | (degenerativ | Phone: | Phone: | | | | | e disc | [phone] | [phone] | | | | | disease), | Fax: | Fax: | | | | | lumbar | [phone] | [phone] | | | | | Weakness of | | | | | | | right foot | | | + + + + + + + Encounter Details +--------+---------+ + + + | Date | Type | Department | Care Team | Description | +--------+---------+ + + + | 09/06/ | Office | [facility] | Ricardo Oh DO | Lumbar radiculopathy | | 2019 | Visit | [facility] | [address] | (Primary Dx); | | | | MEDICINE [place] | [place] [address] | Lumbar disc | | | | PAIN [address] | [phone] | herniation; DDD | | | | [place], [place] | | (degenerative disc | | | | [address] | | disease), lumbar | | | | [phone] | | | +--------+---------+ + + + [...] may be different from courtney maradiaga original. [facility]: Interventional Pain Management 09/06/2018 [...] 09/06/2018 This document has been prepared with [employer] voice recognition system. The possibility of "s ound alike" yard driver errors, and additions, or deletions may occur. [...]
--- OUTSIDE RECORDS SUMMARY | ~2018-11-22 | XMS | Encounter Summary ---
Demographics + + + | Address | [address] [place] [address] | | | [place] [address] | + + + | Home Phone | | + + + | Preferred Language | Unknown | + + + | Marital Status | Unknown | + + + | Adventism Affiliation | Unknown | + + + | Race | Unknown | + + + | Ethnic Group | Unknown | + + + Author + + + | Author | Cintia [employer] | + + + | Organization | [facility] | + + + | Address | Unknown | + + + | Phone | Unavailable | + + + Support + + +---------+ + | Name | Relationship | Address | Phone | + + +---------+ + | None,Provided | ECON | Unknown | | + + +---------+ + Care Team Providers + +------+ + | Care Linux Consultant Name | Role | Phone | + +------+ + | James Conley MD | PCP | | + +------+ + Encounter Details +--------+ + + + + | Date | Type | Department | Care Team | Description | +--------+ + + + + | 10/21/ | Telephone | Eric | December | | | 2019 | | [facility] | | | | | | [address] | | | | | | [place] | | | | | | [address] | | | | | | [phone] | | | +--------+ + + + [...] [place] | | | | | | [address] | | | | | | | | +--------+---------+ + + + as of this encounter Visit Diagnoses Not on filein this encounter"
--- OUTSIDE RECORDS SUMMARY | ~2018-11-22 | XMS | Encounter Summary ---
Demographics + + + | Address | [address] [place] [address] | | | [place] [address] | + + + | Home Phone | | + + + | Preferred Language | Unknown | + + + | Marital Status | Unknown | + + + | Pentecostalism Affiliation | Unknown | + + + | Race | Unknown | + + + | Ethnic Group | Unknown | + + + Author + + + | Author | Cintia [employer] | + + + | Organization | [facility] | + + + | Address | Unknown | + + + | Phone | Unavailable | + + + Support + + +---------+ + | Name | Relationship | Address | Phone | + + +---------+ + | None,Provided | ECON | Unknown | | + + +---------+ + Care Team Providers + +------+ + | Care Coin Purse Framer Name | Role | Phone | + [...] Schedule Surgery | | 2019 | | [facility] | [address] | (Schedule surgery) | | | | [address] | [place], [place] | | | | | [place], [place] | [address] | | | | | [address] | | | | | | [phone] | | | +--------+ + + + [...] [place] | | | | | | [address] | | | | | | | | +--------+---------+ + + + as of this encounter Visit Diagnoses Not on filein this encounter"
--- OUTSIDE RECORDS SUMMARY | ~2018-11-22 | XMS | Encounter Summary ---
Demographics + + + | Address | [address] [place] [address] | | | [place] [address] | + + + | Home Phone | | + + + | Preferred Language | Unknown | + + + | Marital Status | Unknown | + + + | Presybeterian Affiliation | Unknown | + + + | Race | Unknown | + + + | Ethnic Group | Unknown | + + + Author + + + | Author | Cintia [employer] | + + + | Organization | [facility] | + + + | Address | Unknown | + + + | Phone | Unavailable | + + + Support + + +---------+ + | Name | Relationship | Address | Phone | + + +---------+ + | None,Provided | ECON | Unknown | | + + +---------+ + Care Team Providers + +------+ + | Care Seafood Technology Specialist Name | Role | Phone | + [...] + + | 11/14/ | Anesthesia | [facility] | Marzena Lynn, | | | 2019 | Event | [facility] | [facility] [address] | | | | | Operating Room [address] | [place] [address] | | | | | [facility] | [phone] | | | | | [place] [address] | | | | | | [phone] | | | +--------+ + + + [...] [place] | | | | | | [address] | | | | | | | [...] 07:27 | | | | | Starting Dia 11/14/18 at 0727, | | PDT | [...] mg | | | | PRN, Starting [facility] 11/14/18 at | | 9 09:09 | | | | | 0909, Anesthesia Intra-op | | PDT | | | | + +-------+ +-------+---+---+ +---+---+ | | | +---+---+ + +-------+ +-------+---+---+ | lidocaine 2 % (MDV) 2 % | Given | | 40 mg | | | | injection Intravenous, PRN, | | 9 07:03 | | | | | Starting [facility] 11/14/18 at 0703, | | PDT [...]
--- OUTSIDE RECORDS SUMMARY | ~2018-11-22 | XMS | Encounter Summary ---
Demographics + + + | Address | [address] [place] [address] | | | [place] [address] | + + + | Home Phone | | + + + | Preferred Language | Unknown | + + + | Marital Status | Unknown | + + + | Hindu Affiliation | Unknown | + + + | Race | Unknown | + + + | Ethnic Group | Unknown | + + + Author + + + | Author | Cintia [employer] | + + + | Organization | [facility] | + + + | Address | Unknown | + + + | Phone | Unavailable | + + + Support + + +---------+ + | Name | Relationship | Address | Phone | + + +---------+ + | None,Provided | ECON | Unknown | | + + +---------+ + Care Team Providers + +------+ + | Care Scientific Editor Name | Role | Phone | + +------+ + | James Conley MD | PCP | | + +------+ + Reason for Visit + + + | Reason | Comments | + + + | Back Pain | | + + + Consultation (Routine) + +--------+ + + + + | Status | Reason | Specialty | Diagnoses / | Referred By | Referred To | | | | | Procedures | Contact | Contact | + +--------+ + + + + | Authorized | | Neurosurgery | Diagnoses | Yael, | Shima, | | | | | Low back | MD James | DO Tc | | | | | pain | [address] | | | [address] | [address] [place] | | | | | | [place], | [place] | | | | | | [place] [address] | [address] Phone: | | | | | | Phone: | [phone] | | | | | | [phone] | Fax: | | | | | | Fax: | [phone] | | | | | | [phone] | | + +--------+ + + + + Encounter Details +--------+---------+ + + + | Date | Type | Department | Care Team | Description | +--------+---------+ + + + | 10/11/ | Office | [facility] | Tc Ronquillo DO | DDD (degenerative | | 2019 | Visit | [facility] | [address] | disc disease), | | | | [address] | [place], [place] | lumbar (Primary Dx); | | | | [place], [place] | [address] | Lumbar disc | | | | [address] | | herniation; Lumbar | | | | [phone] | | radiculopathy; | | | | | | Weakness of right | | | | | | foot | +--------+---------+ + + + Social History [...] + + + | Blood Pressure | 126/86 | 10/11/2018 9:07 AM PST | + + + + | Pulse | 66 | 10/11/2018 9:07 AM PST | + + + + | Temperature | - | - | + + + + | Respiratory Rate | - | - | + + + + | Oxygen Saturation | - | - | + + + + | Inhaled Oxygen | - | - | | Concentration | | | + + + + | Weight | 111.1 kg (245 lb) | 10/11/2018 9:07 AM PST | + + + + | Height | 182.9 cm (6') | 10/11/2018 9:07 AM PST | + + + + | Body Mass Index | 33.23 | 10/11/2018 9:07 AM PST | + + + + in this encounter Progress Notes ShimaTc sifuentes, - 10/11/2018 9:00 AM PSTFormatting of this note may be different from courtney maradiaga original. Neurosurgery Note Pre Operative [facility] Provider: Tc Ronquillo, Date : 10/11/2018 11:25 AM Referring Provider: James Conley Prior notes Andrea Motta is a 37 y.o. male presents to neurosurgery clinic with Approximately two months of low back pain symptoms. The patient states he was laying aspha lt at the intermediate and he had acute onset of severe central back pain. Approximately a day late r he had muscle spasms and worsening pain which then radiated down his right L5 dermatomal r egion. The patient also notes numbness, weakness and pain of the severity where he was on [facility], unable to walk, having to sit off in a wheelchair or lay down in bed due to th e severe radicular pain. The patient notes at that time he had trouble lifting his foot on the right side. The patient denies any left-sided radiculopathy and was asked specifically about left S1 and L5 but without symptoms. He does have some diabetic neuropathy which goes from his toes to his ankles but denies any symptoms over the left side. The patient has mu ch difficulty walking long distances with severe pain after 10-15 minutes of standing and mtz ving to lean over or bend over frequently. The patient also has noticed difficulty going up stairs and pushing down. If he goes upstairs he is often holding a rail and going up one st ep at a time. The patient has had therapy with regards to the [facility] at the intermediate but has not had any f ormal physical therapy and lumbar injections. The patient states that, over the last two mo nths, he has actually had improvement in his back pain to the point where he is now able to ambulate for short distances and do very low levels of activity but he is not lifting, parta patsy in sports or doing any heavy activity because of severe pain down his leg. The patient is happy that his symptoms are slowly improving but concerned over the severity of the pain and wishes to avoid another episode. The patient otherwise denies any nausea, vomiting, fe vers or chills, has had improvement in his strength and ambulatory distance in the last car h. Patient ID 10/11/2018: Andrea Motta is a 37 y.o. male presents to neurosurgery clinic wit h no improvement in lumbar radiculopathy for long-term after lumbar injections. Patient sta meche of the initial injection of 4/5 he did have improvement for a few weeks but then symptom s returned which included severe radiculopathy in the right L5 dermatomal region worse with coughing straining twisting and bending and intermittent less strong radiculopathy in the le ft S1 dermatomal region. Symptoms are debilitating interfering with all activities of daily living patient has decided now for surgical intervention. Patient reports that they are not on anticoagulation medications. Patient denies current sm oking Review of Systems: Pertinent items are noted in HPI and I personally reviewed independently documented review of systems in patient questionnaire to be added to patient chart No past medical history on file. No Known Allergies No family history on file. Vitals - 1 value per visit 09/06/2018 10/11/2018 SYSTOLIC - 126 DIASTOLIC - 86 PULSE 58 66 TEMPERATURE - - RESPIRATIONS - - WEIGHT (lb) - 245 HEIGHT 6' 1" 6' 0" BMI 32.32 kg/m2 33.23 kg/m2 SPO2 98 - PAIN SCALE - SCORE 6 6 Social History Social History Marital status: Unknown Spouse name: N/A Number of children: N/A Years of education: N/A Occupational History Not on file. Social History Main Topics Smoking status: Never Smoker Smokeless tobacco: Never Used Alcohol use No Drug use: No Sexual activity: Not on file Other Topics Concern Not on file Social History Narrative No narrative on file Objective PHYSICAL EXAM General: Appears in some discomfort limited motion of lower extremities forward bent Skin:Skin color, texture, turgor normal. No rashes or lesions. HEENT: Normocephalic atraumatic Chest:Normal symmetric respiratory effort Heart: Normal rate, auscultation defered, Muscle Strength: Right Left Upper Extremity: 5/5 5/5 Lower Extremity: 4/5 Ehl +4/5 plantar Muscle tone: normal Back: Paraspinal muscle hypertrophy with thickened musculature and knots, tender to palpat ion. Neuro: Eyes: No gross abnormalities, PERRLA, EOMI, sclera normal Cranial nerves II-XII: intact,no involuntary movements or tremors noted Gait: in chains antalgic Sensation: decreased right L5 and Left S1 Labs: No results found for: WBC, RBC, HGB, HCT, PLT No results found for: NA, K, CL, CO2, GLUF, BUN, CREATININE, BCR, CA, PHOS, MG Medications: Current Outpatient Prescriptions: baclofen (LIORESAL) 10 mg tablet, Take 10 mg by mouth 3 (three) times daily., Disp: , Rfl: traMADol (ULTRAM) 50 MG tablet, Take 50 mg by mouth 3 (three) times daily., Disp: , Rf l: Imaging: Internal Imaging Recent XRay Results: No results found. Orders placed this Encounter: Orders Placed This Encounter Procedures Case Request Operating Room: LUMBAR LAMINECTOMY-MINIMALLY INVASIVE SURGERY No orders of the defined types were placed in this encounter. Assessment and Plan: Andrea Motta is a 37 y.o. male with severe lumbar radiculopathy right L5>left S1 with f oot weakness numbness resistant to conservative management The primary encounter diagnosis was DDD (degenerative disc disease), lumbar. Diagnoses of L umbar disc herniation, Lumbar radiculopathy, and Weakness of right foot were also pertinent to this visit. Plan : Risks and Benefits for Minimally Invasive Lumbar Laminectomy Extensive discussion was undertaken regarding risks and benefits with regards to planned s urgical intervention for Minimally invasive lumbar laminectomy, medial facetectomy, foramino mary and possible microdiskectomy at right side at four/five left side five/sacral one. bila teral approach for bilateral decompression, possible adjacent levels. Explained that risks include the risks of general anesthesia with regards to surgical intervention. With lumbar surgical intervention most common risks include Bleeding, Infection, and Cerebral Spinal zafar k with complication incidence anywhere from 2-5% of cases. Explained that even with perfect surgical technique that complications can occur which can be minor and only require more ext ensive medical treatment or medications, or require a return for further surgical interventi on. Discussed with patient that with the diagnosis of degenerative arthritis while this surg mansi is to address the patients current spinal/nerve stenosis that I cannot eliminate the ris k of further compression from adjacent level disease or post operative scar and thus return of symptoms with need for possible adjacent level surgical intervention and or spinal fusion . With regards to central axial back pain explained that it is unlikely that any surgical in tervention will improve general back pain and that back pain can even be worse after interve tion during the healing phase. Indications for surgical intervention is for decompression of the nerve to prevent further injury to that nerve and that I cannot guarantee improvement i n the damage that has already occurred. What the means is that if the patient has profound w eakness numbness or neurologic deficits that despite surgery those deficits can persist and sometimes worsen. It is not possible for me to forsee all potential adverse outcomes or rare potential complications that can be severe leading to permanent injury and possible disabil ity/. No guarantees were given. Need for potential bilateral incision discussed with courtney hiren patient explained that it may be possible for me to technically do the surgery with one i ncision but should have difficulty patient may require 2 incisions. Patient voiced understanding of relative risks and consents for surgical intervention. Patient educated on the overall course for scheduling and obtaining a surgical intervention . Patient advised that should their symptoms acutely worsen in the interval leading up to courtney maradiaga surgical intervention they should notify the neurosurgery team for more urgent interventi on if indicated. Return for Surgical intervention. It is a pleasure being involved in this patients care should any questions or concerns sheila e feel free to contact me at any time. Tc Ronquillo D.O Board Certified Neurosurgeon [facility] Office Parts of this document have been created with voice recognition software. Although I have p roofread the note, disciplinary hearing officer errors may still exist. in this encounter Plan of Treatment +--------+---------+ + + + | Date | Type | Specialty | Care Team | Description | +--------+---------+ + + + | 11/29/ | Office | Neurosurgery | Tc Ronquillo DO | | | 2019 | Visit | | [address] | | | | | | [place] | | | | | | [address] | | | | | | | [...] | | + +--------+ + + + in this encounter Visit Diagnoses + + | Diagnosis | + + | DDD (degenerative disc disease), lumbar - Primary | + + | Degeneration of lumbar [...]
--- OUTSIDE RECORDS SUMMARY | ~2018-11-22 | XMS | Encounter Summary ---
Demographics + + + | Address | [address] [place] [address] | | | [place] [address] | + + + | Home Phone | | + + + | Preferred Language | Unknown | + + + | Marital Status | Unknown | + + + | Taoist Affiliation | Unknown | + + + | Race | Unknown | + + + | Ethnic Group | Unknown | + + + Author + + + | Author | [employer] | + + + | Organization | [facility] | + + + | Address | Unknown | + + + | Phone | Unavailable | + + + Support + + +---------+ + | Name | Relationship | Address | Phone | + + +---------+ + | None,Provided | ECON | Unknown | | + + +---------+ + Care Team Providers + +------+ + | Care Ironworker Name | Role | Phone | + +------+ + | James Conley MD | PCP | | + +------+ + Reason for Visit +--------+ + | Reason | Comments | +--------+ + | Other | [facility] | +--------+ + Encounter Details +--------+ + + + + | Date | Type | Department | Care Team | Description | +--------+ + + + + | 10/22/ | Documentati | [facility] | Roseanne Del Toro, | Other ([place] | | 2019 | on Only | [facility] | ELECTRONIC PARTS SALESPERSON | DEPARMENT OF | | | | [address] | | [facility] | | | | [place], [place] | | REFERRAL 09/18/2018) | | | | [address] | | | | | | [phone] | | | +--------+ + + + [...] this encounter Progress Notes Roseanne Del Toro ELECTRONIC PARTS SALESPERSON - 10/22/2018 12:56 PM SRINIVASA Garcia this [...] [place] | | | | | | [id number] | | | | | | | | +--------+---------+ + + + as of this encounter Visit Diagnoses Not on filein this encounter"
--- OUTSIDE RECORDS SUMMARY | ~2018-11-22 | XMS | Encounter Summary ---
Demographics + + + | Address | [address] [place] [address] | | | [place] [address] | + + + | Home Phone | | + + + | Preferred Language | Unknown | + + + | Marital Status | Unknown | + + + | Restorationism Affiliation | Unknown | + + + | Race | Unknown | + + + | Ethnic Group | Unknown | + + + Author + + + | Author | [employer] | + + + | Organization | [facility] [employer] [facility] | + + + | Address | Unknown | + + + | Phone | Unavailable | + + + Support + + +---------+ + | Name | Relationship | Address | Phone | + + +---------+ + | None,Provided | ECON | Unknown | | + + +---------+ + Care Team Providers + +------+ + | Care House Player Name | Role | Phone | + [...] + + | 10/24/ | Documentati | [facility] | Roseanne Del Toro, | Care Coordination | | 2019 | on Only | [facility] | GUM PULLER | ([facility] | | | | [address] | | [facility] | | | | [place] | | 10/11/18) | | | | [address] | | | | | | [phone] | | | +--------+ + + + [...] CMA - 10/24/2018 9:09 AM PSTORDERS FROM [facility] V[facility] SIGNED BY DR BASSAM MULLER WITH [facility] CHART NOTES FROM [place] DEPT OF [facility] MEDICATION LIST in this [...] [place] | | | | | | [id number] | | | | | | | | +--------+---------+ + + + as of this encounter Visit Diagnoses Not on filein this encounter"
--- OUTSIDE RECORDS SUMMARY | ~2018-11-22 | XMS | Encounter Summary ---
Demographics + + + | Address | [address] [place] [address] | | | [place] [address] | + + + | Home Phone | | + + + | Preferred Language | Unknown | + + + | Marital Status | Unknown | + + + | Restorationist Affiliation | Unknown | + + + | Race | Unknown | + + + | Ethnic Group | Unknown | + + + Author + + + | Author | [employer] | + + + | Organization | [facility] | + + + | Address | Unknown | + + + | Phone | Unavailable | + + + Support + + +---------+ + | Name | Relationship | Address | Phone | + + +---------+ + | None,Provided | ECON | Unknown | | + + +---------+ + Care Team Providers + +------+ + | Care Gauge And Weigh Machine Adjuster Name | Role | Phone | + [...] | | | | | | [place] [address] | [address] Phone: | | | | | | Phone: | [phone] | | | | | | [phone] | Fax: | | | | | | Fax: | [phone] | | | | | | [phone] | | + +--------+ + + + + Encounter Details +--------+---------+ + + + | Date | Type | Department | Care Team | Description | +--------+---------+ + + + | 10/11/ | Office | [facility] | Tc Ronquillo DO | DDD (degenerative | | 2019 | Visit | [facility] | [address] | disc disease), | | | | [address] | [place], [place] | lumbar (Primary Dx); | | | | [place], [place] | [address] | Lumbar disc | | | | [address] | | herniation; Lumbar | | | | [phone] | | radiculopathy; | | | | [...] courtney maradiaga original. Neurosurgery Note Pre Operative [facility] Provider: Tc Ronquillo, Date : 10/11/2018 11:25 AM Referring Provider: James Cnoley Prior notes Andrea Motta is a 37 y.o. male presents to neurosurgery clinic with Approximately two months of low back pain symptoms. The patient states he was laying [facility]pha lt at the senior living and he had acute onset of severe central back pain. Approximately a day late r he had muscle spasms and worsening pain which then radiated down his right L5 dermatomal r egion. The patient also notes numbness, weakness and pain of the severity where he was on [facility], unable to walk, having to sit off [...] with regards to the infirm[facility] at the senior living but has not had any f ormal [...] time. Tc Ronquillo D.O Board Certified Neurosurgeon [facility] Office Parts of this document have been created with voice recognition software. Although I have p roofread the note, crm consultant errors may still exist. in this encounter [...] [place] | | | | | | [id number] | | | | | | | [...]
[~2018-11-22 16:33] MED LIST: AMLODIPINE BESY10 MG PO; CHLORTHALIDONE25 MG PO; CHOLESTEROL MED; HYDROCHLOROTHIA50 MG PO; LANTUS100 UNITS/ SUB-Q; LISINOPRIL40 MG PO; METFORMIN HCL500 MG PO; NORCO 7.5-3251 EACH PO; POTASSIUM CITR10 MEQ PO; SIMVASTATIN20 MG PO
[2018-11-22] MEDS ORDERED: BACLOFEN10 MG PO (17:13)
[2018-11-22] MEDS ORDERED: NAPROXEN500 MG PO (17:15)
[2018-11-22] MEDS ORDERED: NORCO 5-325 TA1 EACH PO (17:15)
[2018-11-22] MEDS ORDERED: KETOROLAC30 MG/1 M3 IM (17:16)
[2018-11-22] MEDS ORDERED: ATORVASTATIN CA20 MG PO (17:17)
[2018-11-22] MEDS ORDERED: HUMALOG100 UNIT/1 SUB-Q (17:19)
[2018-11-22] MEDS ORDERED: ULTRAM50 MG PO (17:19)
== END 2018-11-22 18:29 | disposition home or self-care (01) ==
LOC: ED 16:33
DX: R51 Headache (principal); I10 Essential (primary) hypertension; E11.9 Type 2 diabetes mellitus without complications; E78.00 Pure hypercholesterolemia, unspecified; Z91.013 Allergy to seafood; Z79.4 Long term (current) use of insulin; Z79.899 Other long term (current) drug therapy
CPT/HCPCS: 99283

== ENCOUNTER 2020-09-15 23:11 | Emergency (ER) | payer OTHER ==
[~2020-09-15] VITALS: Ht 185.4 cm; Wt 115.7 kg
[~2020-09-15 23:11] MED LIST changes: +ATORVASTATIN CA20 MG PO; +BACLOFEN10 MG PO; +HUMALOG100 UNIT/1 SUB-Q; +KETOROLAC30 MG/1 M3 IM; +NAPROXEN500 MG PO; +NORCO 5-325 TA1 EACH PO; +ULTRAM50 MG PO
[2020-09-15] MEDS ORDERED: NOVOLIN R100 UNIT/1 INJ (23:25)
== END 2020-09-15 23:59 | disposition home or self-care (01) ==
LOC: ED 23:11
DX: H10.89 Other conjunctivitis (principal); I10 Essential (primary) hypertension; E11.9 Type 2 diabetes mellitus without complications; E78.00 Pure hypercholesterolemia, unspecified; Z91.013 Allergy to seafood; Z79.4 Long term (current) use of insulin; Z79.899 Other long term (current) drug therapy; Z79.891 Long term (current) use of opiate analgesic
CPT/HCPCS: 99283

== ENCOUNTER 2020-11-19 14:00 | Emergency (ER) | payer OTHER ==
[~2020-11-19] VITALS: Ht 185.4 cm; Wt 108.9 kg
[~2020-11-19 14:00] MED LIST changes: +NOVOLIN R100 UNIT/1 INJ
== END 2020-11-19 17:35 | disposition home or self-care (01) ==
LOC: ED 14:00
DX: S61.311A Laceration without foreign body of left index finger with damage to nail, initial encounter (principal); W22.8XXA Striking against or struck by other objects, initial encounter; I10 Essential (primary) hypertension; E11.9 Type 2 diabetes mellitus without complications; E78.00 Pure hypercholesterolemia, unspecified; Z88.8 Allergy status to other drugs, medicaments and biological substances; Z91.013 Allergy to seafood; Z79.899 Other long term (current) drug therapy; Z79.4 Long term (current) use of insulin
CPT/HCPCS: 12002; 73140; 99283-25